=== PATIENT | male | born 1955 | race Caucasian/White ===

== ENCOUNTER 2018-03-14 11:10 | Inpatient (IN) | payer OTHER ==
[~2018-03-14] VITALS: Ht 182.9 cm; Wt 129.7 kg
[~2018-03-14 11:10] MED LIST: AMIODARONE HCL200 M1 PO; ASPIRIN EC81 M1 PO; ATORVASTATIN CA40 M1 PO; CLARITIN10 M1 PO; CLOPIDOGREL75 M1 PO; GLYBURIDE5 M1 PO; HYDROCODON-ACE1 EAC2 PO; LISINOPRIL2.5 M1 PO; METFORMIN HCL1000 M1 PO; METOPROLOL SUC100 M2 PO; PERCOCET 5-3251 EACH PO; PREDNISONE20 M1 PO; SENNA S TABLET1 EACH PO; TRADJENTA5 M1 PO
[2018-03-14 12:14] LABS: ABSOLUTE BASOPHIL COUNT 0 /CUMM (0.0-0.2); ABSOLUTE EOSINOPHIL COUNT 0.3 /CUMM (0.0-0.7); ABSOLUTE GRANULOCYTE CT 12.5 /CUMM (1.4-6.5); ABSOLUTE LYMPH COUNT 0.3 /CUMM (1.2-3.4); ABSOLUTE MONOCYTE COUNT 0.8 /CUMM (0.10-0.60); BASOPHIL % 0 % (0.0-2.0); EOSINOPHIL % 1.9 % (0-5); HEMATOCRIT 40.3 % (42-52); MEAN CORPUSCULAR HGB CONC 33.5 G/DL (33.0-37.0); MEAN CORPUSCULAR VOLUME 89.8 FL (80.0-94.0); MEAN PLATELET VOLUME 7.4 FL (7.4-10.4); PLATELET COUNT 315 /CUMM (130-400); RBC DISTRIBUTION WIDTH 13.8 % (11.5-14.5); RED BLOOD CELL CT 4.49 /CUMM (4.70-6.10)
[2018-03-14 12:28] LABS: GRANULOCYTE % 89.7 % (42.2-75.2)
--- NOTE | 2018-03-14 12:40 | ULTRASOUND REPORT ---
EXAMINATION: US CHEST CLINICAL INFORMATION: Hx MRSA w L axillary cellulitis, induration, fever COMPARISON: No direct priors. A CT chest from 08/03/2012 was reviewed. TECHNIQUE: Grayscale and color Doppler sonographic evaluation of the left lateral chest wall/axilla FINDINGS: Targeted evaluation of the left lateral chest wall/axilla in the region of clinical concern demonstrates heterogeneous subcutaneous fat compatible with edema/inflammation. No drainable fluid collection is demonstrated. IMPRESSION: No drainable fluid collection demonstrated.
--- NOTE | 2018-03-14 12:43 | ED SKIN/ALLERGY COMPLAINT ---
History of Present Illness General Chief Complaint: General Adult Stated Complaint: L SIDED FLANK SWELLING AND PAIN PER PT ?STAPH? Source: patient, family, old records Exam Limitations: no limitations Vital Signs & Intake/Output Vital Signs & Intake/Output Vital Signs Date Time Temp Pulse Resp B/P B/P Pulse O2 O2 Flow FiO2 Mean Ox Delivery Rate 03/14 1118 99.3 98 18 125/76 96 Room Air Allergies Coded Allergies: amiodarone (Severe, HIVES AND SOB 03/14/18) hydrocodone (Severe, HIVES AND SOB 03/14/18) Reconcile Medications Amlodipine Besylate 5 MG TABLET 1 TAB PO DAILY BP (Reported) Aspirin (Ecotrin*) 81 MG TABLET.DR 1 TAB PO DAILY HEART/BLOOD (Reported) Atorvastatin Calcium 80 MG TABLET 1 TAB PO DAILY CHOLESTEROL (Reported) [BENZOYL PEROXIDE] 1 ANNABEL TOP BID AFFECTED AREA(S) (Reported) Clindamycin Phosphate 1 % GEL..GRAM. 1 ANNABEL TOP BID AFFECTED AREA(S) (Reported ) apply to affected area(s) Dapagliflozin Propanediol (Farxiga) 10 MG TABLET 1 TAB PO DAILY DM (Reported) Glyburide 5 MG TABLET 1 TAB PO BID DIABETES (Reported) Linagliptin (Tradjenta) 5 MG TABLET 1 TAB PO QAM DIABETES (Reported) Metformin HCl 1,000 MG TABLET 1 TAB PO BID DIABETES (Reported) Metoprolol Tartrate 50 MG TABLET 1 TAB PO BID HEART/BP (Reported) Naproxen Sodium (Aleve) 220 MG TABLET 2 TAB PO Q12H PRN PAIN (Reported) Triage Note: REPORTS SWELLING ON THE LEFT ARMPIT AREA, HE NOTICED THIS EARLY LAST WEEK. HE IS CURRENTLY UNDER TREATMENT FOR STAPH INFECTION IN HIS CHEST HE REPORTS AND DOES NOT KNOW IF THIS IS RELATED. Triage Nurses Notes Reviewed? yes Onset: 2 weeks ago Duration: week(s):, constant, continues in ED, getting worse Timing: recent history Severity: moderate, severe Location: torso Possible Factors: no cause identified No Modifying Factors: none Associated Symptoms: change in skin texture, rash, swelling/mass/lumps HPI: 2 weeks prior to admission patient reports increasing redness and swelling the left posterior lateral chest / back. He recently completed trimethoprim sulfamethoxazole for inguinal cysts/abscesses. 1 day prior to admission reports having fever. He denies chest pain cough shortness of breath headache dysuria bleeding. Past History Travel History Traveled to [place] past 21 day No Medical History Any Pertinent Medical History? see below for history Neurological: NONE EENT: NONE Cardiovascular: QUADRUPLE BYPASS, HTN CHOL Respiratory: SLEEP APNEA Gastrointestinal: NONE Hepatic: NONE Renal: NONE Musculoskeletal: NONE Psychiatric: NONE Endocrine: diabetes Surgical History Surgical History: non-contributory Psychosocial History What is your primary language Eritrean Tobacco Use: Quit >30 days ago Family History Hx Contributory? No Review of Systems Review of Systems Constitutional: Reports: see HPI, fever. EENTM: Reports: no symptoms. Respiratory: Reports: no symptoms. Cardiovascular: Reports: no symptoms. GI: Reports: no symptoms. Genitourinary: Reports: no symptoms. Musculoskeletal: Reports: no symptoms. Skin: Reports: see HPI, rash. Neurological/Psychological: Reports: no symptoms. Hematologic/Endocrine: Reports: no symptoms. Immunologic/Allergic: Reports: no symptoms. All Other Systems: Reviewed and Negative Physical Exam Physical Exam General Appearance: well developed/nourished, alert, awake, anxious, mild distress, obese Head: atraumatic, normal appearance Eyes: Bilateral: normal appearance, PERRL, EOMI. Ears, Nose, Throat: normal pharynx, normal ENT inspection, hearing grossly normal Neck: normal inspection, supple, full range of motion, no midline tenderness Respiratory: normal breath sounds, chest non-tender, no respiratory distress, quiet respiration, lungs clear Cardiovascular: regular rate/rhythm, normal peripheral pulses, norml femoral pulses equa Peripheral Pulses: 4+ carotid (R), 4+ carotid (L) Gastrointestinal: normal bowel sounds, soft, non-tender, no organomegaly Back: normal inspection, normal range of motion, no vertebral tenderness Extremities: normal inspection, normal capillary refill, normal range of motion, no edema, no ligament instability Neurologic/Psych: no motor/sensory deficits, awake, alert, oriented x 3, normal gait, normal mood/affect Reflexes: 2+: bicep (R), bicep (L). Skin: intact, rash Skin Problem Location: torso Skin Problem Character: erythema, rash, swelling, tenderness, thickening, warm Lymphatic: no anterior cervical gracie Progress Differential Diagnosis: abscess/cellulitis, allergic reaction Plan of Care: Orders Procedure Date/time Status Consistent Carbohydrate 2 03/14 D Active OXYGEN SETUP (GEN) 03/14 1245 Active Saline Lock 03/14 1245 Active Admit to inpatient 03/14 1245 Active Vital Signs 03/14 1245 Active Activity/Ambulation 03/14 1245 Active Code Status 03/14 1245 Active BLOOD CULTURE 03/14 1135 Active COMPREHENSIVE METABOLIC PANEL 03/14 1135 Complete CBC WITHOUT DIFFERENTIAL 03/14 1135 Complete Current Medications Sig/Bailee Start time Last Medication Dose Stop Time Status Admin Vancomycin HCl 2,000 MG ONE ONE 03/14 1300 AC Sodium Chloride 500 ML 03/14 1459 (Normal Saline 0.9%) Vancomycin HCl 2,000 MG ONCE ONE 03/14 1245 CAN 03/14 1246 Laboratory Tests 03/14/18 1203: Anion Gap 16, Estimated GFR > 60, BUN/Creatinine Ratio 15.0, Glucose 131 H, Calcium 9.1, Total Bilirubin 1.4 H, AST 17, ALT 33, Alkaline Phosphatase 138 H , Total Protein 6.2 L, Albumin 3.4 L, Globulin 2.8, Albumin/Globulin Ratio 1.2 , CBC w Diff NO MAN DIFF REQ, RBC 4.49 L, MCV 89.8, MCH 30.0, MCHC 33.5, RDW 13.8, MPV 7.4, Gran % 89.7 H, Lymphocytes % 2.5 L, Monocytes % 5.9, Eosinophils % 1.9, Basophils % 0, Absolute Granulocytes 12.5 H, Absolute Lymphocytes 0.3 L, Absolute Monocytes 0.8 H, Absolute Eosinophils 0.3, Absolute Basophils 0 Microbiology 03/14 1219 BLOOD: Blood Culture - RECD 03/14 1203 BLOOD: Blood Culture - RECD Diagnostic Imaging: Viewed by Me: Ultrasound. Discussed w/RAD: Ultrasound. Radiology Impression: No drainable fluid collection. Departure Departure Disposition: STILL A PATIENT Condition: Fair Clinical Impression Primary Impression: Cellulitis Secondary Impressions: Leukocytosis Referrals: Ziyda COLLAZO,Al Dodd (PCP/Family) Departure Forms: Customer Survey General Discharge Information Admission Note Spoke With: Daquan COLLAZO,Arianna Documentation of Exam: Documentation of any treatments & extenuating circumstances including Concerns Regarding Discharge (functional status, medication knowledge or non-compliance, living conditions, etc.) that warrant an admission rather than observation: IV antibiotics follow cultures serial lab exam medication adjustment ID evaluation continuing care discharge planning
[2018-03-14] MEDS ORDERED: METOPROLOL TART50 M1 PO (13:04)
[2018-03-14] MEDS ORDERED: AMLODIPINE BESYL5 M1 PO (13:05)
[2018-03-14] MEDS ORDERED: ATORVASTATIN CA80 M1 PO (13:05)
[2018-03-14] MEDS ORDERED: CLINDAMYCIN PHO30 GM TOP (13:06)
[2018-03-14] MEDS ORDERED: FARXIGA10 M1 PO (13:06)
[2018-03-14] MEDS ORDERED: ALEVE220 M2 PO (13:08)
[2018-03-14] MEDS ORDERED: BENZOYL PEROXIDE TOP (13:08)
--- NOTE | 2018-03-14 14:03 | History & Physical ---
General Information and HPI MD Statement: I have seen and personally examined SHAYLA NEGRETE III and documented this H&P. The patient is a 62 year old M who presented with a patient stated chief complaint of pain. . Source of Information: patient, family, old records Exam Limitations: no limitations History of Present Illness: Mr Negrete a pleasant 62-year-old gentleman with past medical history of diabetes, coronary artery disease, hypertension, hyperlipidemia, quadruple bypass and sleep apnea (untreated) who presented to the emergency department on 03/14/2018 complaining of worsening pain and erythema in the left chest and left axillary area. Patient does have a history of cysts and originally started experiencing cysts in multiple parts of his body from mid november. He subsequently visited his primary care physician Dr. Lackey who prophylactically gave him Bactrim twice a day for 10 days. He was also given a referral to follow up with Dr Ramires because he never had a resolution. Dr Ramires started him on clindamycin (picked up 03/06) prophylactically. The patient also reports that he had to have some steroid injections to reduce inflammation from the cysts. Despite an aggressive workup and referrals the etiology of the cysts of still being idiopathic. Prior to coming in today the patient stated that he felt febrile and continued to experience worsening pain. Despite the fact that he was on clindamycin on he had limited range of motion of his left upper extremity. At the time of our clinical interaction the patient endorsed pain rated at a 6 out of 10 in severity. Described as constant and dull. States that he has 2 cysts one located in the anterior chest and the other under the left axillary. Patient did have a appointment to follow-up with Dr. Gonzalez this Thursday. Patient's primary care physician is Dr. Lackey. Patient reports good medication compliance. Allergies/Medications Allergies: Coded Allergies: amiodarone (Severe, HIVES AND SOB 03/14/18) hydrocodone (Severe, HIVES AND SOB 03/14/18) Home Med list Amlodipine Besylate 5 MG TABLET 1 TAB PO DAILY BP (Reported) Aspirin (Ecotrin*) 81 MG TABLET.DR 1 TAB PO DAILY HEART/BLOOD (Reported) Atorvastatin Calcium 80 MG TABLET 1 TAB PO DAILY CHOLESTEROL (Reported) [BENZOYL PEROXIDE] 1 ANNABEL TOP BID AFFECTED AREA(S) (Reported) Clindamycin Phosphate 1 % GEL..GRAM. 1 ANNABEL TOP BID AFFECTED AREA(S) (Reported ) apply to affected area(s) Dapagliflozin Propanediol (Farxiga) 10 MG TABLET 1 TAB PO DAILY DM (Reported) Glyburide 5 MG TABLET 1 TAB PO BID DIABETES (Reported) Linagliptin (Tradjenta) 5 MG TABLET 1 TAB PO QAM DIABETES (Reported) Metformin HCl 1,000 MG TABLET 1 TAB PO BID DIABETES (Reported) Metoprolol Tartrate 50 MG TABLET 1 TAB PO BID HEART/BP (Reported) Naproxen Sodium (Aleve) 220 MG TABLET 2 TAB PO Q12H PRN PAIN (Reported) Compliance With Home Meds: GOOD Past History Travel History Traveled to [place] past 21 day No Medical History Neurological: NONE EENT: NONE Cardiovascular: QUADRUPLE BYPASS, HTN CHOL Respiratory: SLEEP APNEA Gastrointestinal: NONE Hepatic: NONE Renal: NONE Musculoskeletal: NONE Psychiatric: NONE Endocrine: diabetes Surgical History Surgical History: non-contributory Past Family/Social History Family History Relations & Conditions if any FATHER (Liver failure due to alcohol abuse). MOTHER (Generalized Deconditioning). Psychosocial History Where do you live? Home Who Do You Live With? spouse Services at Home: None Primary Language: Sami Smoking Status: Never Smoked ETOH Use: occasional use Functional Ability ADLs Independent: dressing, eating, toileting, bathing. Ambulation: independent IADLs Independent: shopping, housework, finances, food prep, telephone, transportation , medication admin. Employment History Employment Retired Review of Systems Review of Systems Constitutional: Reports: fever. Denies: chills, diaphoresis, malaise, weakness. Musculoskeletal: Denies: back pain, gout, joint pain, joint swelling. Skin: Reports: cysts. Neurological/Psychological: Denies: ataxia, cognitive dysfunction, confusion, depressed, emotional problems. Exam & Diagnostic Data Last 24 Hrs of Vital Signs/I&O Vital Signs Date Time Temp Pulse Resp B/P B/P Pulse O2 O2 Flow FiO2 Mean Ox Delivery Rate 03/14 1426 99.7 88 18 117/59 97 Room Air 03/14 1118 99.3 98 18 125/76 96 Room Air Intake & Output 03/14 1600 03/14 0800 03/14 0000 Intake Total Output Total Balance Patient 131.542 kg Weight Weight Reported by Patient Measurement Method Physical Exam General Appearance Alert, Oriented X3, Cooperative Cardiovascular Normal S1, Normal S2, No Murmurs Lungs Clear to Auscultation Abdomen Normal Bowel Sounds, Soft, No Tenderness Neurological Normal Speech, Strength at 5/5 X4 Ext, Cranial Nerves 3-12 NL Extremities No Edema, Normal Pulses, No Tenderness/Swelling, Multiple Non Draining Healed Carbuncles located in the groin area. Left Axilla: erythematous , warmth and fluctuation noted. Chest wall, left sided carbuncle noted, Vascular Normal Pulses Body Front and Back (Adult) 1) Left Axialliary erythema, and warmth noted. ROM WNL Diagnostic Data Other Results SERVICE DATE: 03/14/18 EXAM TYPE: US - US-CHEST EXAMINATION: US CHEST CLINICAL INFORMATION: Hx MRSA w L axillary cellulitis, induration, fever COMPARISON: No direct priors. A CT chest from 08/03/2012 was reviewed. TECHNIQUE: Grayscale and color Doppler sonographic evaluation of the left lateral chest wall/axilla FINDINGS: Targeted evaluation of the left lateral chest wall/axilla in the region of clinical concern demonstrates heterogeneous subcutaneous fat compatible with edema/inflammation. No drainable fluid collection is demonstrated. IMPRESSION: No drainable fluid collection demonstrated. DICTATED BY: Olivia Gregg MD Assessment/Plan Assessment: Mr Negrete a pleasant 62-year-old gentleman with past medical history of diabetes, coronary artery disease, hypertension, hyperlipidemia, quadruple bypass and sleep apnea (untreated) who presented to the emergency department on 03/14/2018 complaining of worsening pain and erythema in the left chest and left axillary area. #Cellulitis previous culture report grown MSSA #Elevated liver enzymes #Hx of CAD #History of DM on multiple oral hypoglycemics #Sleep Apnea While in the emergency department the patient received IV vancomycin. Owing to previous history of MSSA begin the patient on IV oxacillin. If patient fails to improve overnight consider ID consultation. Apply warm compresses and keep arm elevated. Continue home medications including: Lopressor, Norvasc, Aspirin and Lipitor. Hold anti-oral hypoglycemics and begin the patient on Novollog SS. Maintain blood sugar below 180. CBC and BEP in AM. Monitor hepatic function in AM, if continues to be elevated, may consider Abdominal Ultrasound. Patient will likely benefit from sleep study as an outpatient. DVT PPX: Lovenox Patient is a full code As Ranked By This Provider Problem List: 1. Leukocytosis 2. Cellulitis Core Measures/Misc (07/05) Sepsis (View protocol) If YES complete Sepsis Event Note If YES complete Sepsis Event Note
--- NOTE | 2018-03-14 14:15 | Admission Certification ---
Admission Certification Certification Statement - As attending physician, I certify that at the time of - admission, based on clinical presentation, severity of - symptoms, need for further diagnostic testing and - therapeutic interventions, and risk of adverse outcomes - without in-hospital treatment, in my clinical assessment, - this patient requires an acute hospital stay for a minimum - of two nights or longer. I have also considered psychsocial - factors such as support system, advanced age, financial - issues, cognitive issues, and failed out-patient treatments, - past re-admission history, safety of patient, and lack of - compliance as applicable. Specific rationale supporting this admission is: Sialitis left chest wall
--- NOTE | 2018-03-14 14:15 | PN- Att Addend ---
Attending Addendum Attending Brief Note Patient seen and examined. Plan of care discussed with the medical team and the patient. Available lab work and radiology test reports were reviewed. This is 62-year-old male with history of for diabetes, CAD, hypertension, hypercholesteremia, sleep apnea and quadruple bypass who has been treated recently for carbuncles at multiple locations. He has seen the dermatology office recently she was given intralesional corticosteroids in addition to topical clindamycin. Patient also admits to receiving oral antibiotic. For the past 2 days patient has noted increasing pain in the left exhilarated area and has noticed swelling or redness. He admits to having mild nausea but no vomiting and denies any fever or chills. Denies any difficulty breathing or any abdominal pain. Allergies Coded Allergies: amiodarone (Severe, HIVES AND SOB 03/14/18) hydrocodone (Severe, HIVES AND SOB 03/14/18) Reconcile Medications Amlodipine Besylate 5 MG TABLET 1 TAB PO DAILY BP (Reported) Aspirin (Ecotrin*) 81 MG TABLET.DR 1 TAB PO DAILY HEART/BLOOD (Reported) Atorvastatin Calcium 80 MG TABLET 1 TAB PO DAILY CHOLESTEROL (Reported) [BENZOYL PEROXIDE] 1 ANNABEL TOP BID AFFECTED AREA(S) (Reported) Clindamycin Phosphate 1 % GEL..GRAM. 1 ANNABEL TOP BID AFFECTED AREA(S) (Reported ) apply to affected area(s) Dapagliflozin Propanediol (Farxiga) 10 MG TABLET 1 TAB PO DAILY DM (Reported) Glyburide 5 MG TABLET 1 TAB PO BID DIABETES (Reported) Linagliptin (Tradjenta) 5 MG TABLET 1 TAB PO QAM DIABETES (Reported) Metformin HCl 1,000 MG TABLET 1 TAB PO BID DIABETES (Reported) Metoprolol Tartrate 50 MG TABLET 1 TAB PO BID HEART/BP (Reported) Naproxen Sodium (Aleve) 220 MG TABLET 2 TAB PO Q12H PRN PAIN (Reported) Medical History Any Pertinent Medical History? see below for history Neurological: NONE EENT: NONE Cardiovascular: QUADRUPLE BYPASS, HTN CHOL Respiratory: SLEEP APNEA Gastrointestinal: NONE Hepatic: NONE Renal: NONE Musculoskeletal: NONE Psychiatric: NONE Endocrine: diabetes Surgical History Surgical History: non-contributory Psychosocial History What is your primary language Pry[place]inig Tobacco Use: Quit >30 days ago Family History Hx Contributory? No Vital Signs Date Time Temp Pulse Resp B/P B/P Pulse O2 O2 Flow FiO2 Mean Ox Delivery Rate 03/14 1118 99.3 98 18 125/76 96 Room Air Intake & Output 03/14 1600 03/14 0800 03/14 0000 Intake Total Output Total Balance Patient 290 lb Weight Weight Reported by Patient Measurement Method Exam: General: Patient awake alert oriented without any distress CVS: S1 plus S2 without any murmur or gallops Chest: Few scattered crepitation without any wheeze. There is no respiratory distress. Abdomen: Soft non-tender, bowel sound present, no guarding or rebound [employer]: Awake alert oriented without any focal neuro deficit and follows commands appropriately Extremities: No edema; no clubbing or cyanosis noted Skin: Multiple healed and healing carbuncles over groin abdomen and chest area axilla: Left axilla area shows chest wall hyperemia and tenderness and mild fluctuation; no lymph nodes are detected Laboratory Tests 03/14/18 1203: Anion Gap 16, Estimated GFR > 60, BUN/Creatinine Ratio 15.0, Glucose 131 H, Calcium 9.1, Total Bilirubin 1.4 H, AST 17, ALT 33, Alkaline Phosphatase 138 H , Total Protein 6.2 L, Albumin 3.4 L, Globulin 2.8, Albumin/Globulin Ratio 1.2 , CBC w Diff NO MAN DIFF REQ, RBC 4.49 L, MCV 89.8, MCH 30.0, MCHC 33.5, RDW 13.8, MPV 7.4, Gran % 89.7 H, Lymphocytes % 2.5 L, Monocytes % 5.9, Eosinophils % 1.9, Basophils % 0, Absolute Granulocytes 12.5 H, Absolute Lymphocytes 0.3 L, Absolute Monocytes 0.8 H, Absolute Eosinophils 0.3, Absolute Basophils 0 Microbiology 03/14 1219 BLOOD: Blood Culture - RECD 03/14 1203 BLOOD: Blood Culture - RECD US: No fluid collection Assessment and problem list * Left chest wall cellulitis; note that a culture report from November this year from the carbuncle has grown MSSA * History of CAD status post CABG * History diabetes * History of sleep apnea * Obesity Plan: * Begin iv oxacillin * cbc in am * continue home meds * may need reimaging to rule out fluid collection in 2-3 days. * Because of recurrent carbuncles and skin infection patient may likely in future need suppressive antibiotic treatment and possibly chlorhexidine baths
[2018-03-14 15:34] VITALS: BP 132/60
[2018-03-14 22:32] VITALS: BP 116/60
--- NOTE | 2018-03-15 09:01 | PN- Housestaff ---
Subjective Follow-up For: #Cellulitis previous culture report grown MSSA #Elevated liver enzymes #Hx of CAD #History of DM on multiple oral hypoglycemics #Sleep Apnea Subjective: Patient offers no complaints. at bedside reports that patient's skin erythema seems to be spreading. Review of Systems Constitutional: Reports: see HPI. Objective Last 24 Hrs of Vital Signs/I&O Vital Signs Date Time Temp Pulse Resp B/P B/P Pulse O2 O2 Flow FiO2 Mean Ox Delivery Rate 03/15 921 101 116/60 03/15 0921 101 116/60 03/14 2232 99.1 101 18 116/60 94 03/14 2142 116/60 03/14 1534 97.9 107 20 132/60 99 Room Air 03/14 1426 99.7 88 18 117/59 97 Room Air Intake & Output 03/15 1600 03/15 0800 03/15 0000 Intake Total 540 390 Output Total Balance 540 390 Intake, IV 300 150 Intake, Oral 240 240 Patient 286 lb Weight Physical Exam General Appearance: Alert, Oriented X3, Cooperative, No Acute Distress, Obese Skin: R anxillary and posterior chest with skin erythema, warmth and induration. Tender on palpation Cardiovascular: Regular Rate, Normal S1, Normal S2 Lungs: Clear to Auscultation, Normal Air Movement Abdomen: Normal Bowel Sounds, Soft, No Tenderness Current Medications: Current Medications Sig/Bailee Start time Last Medication Dose Route Stop Time Status Admin Acetaminophen 650 MG Q6P PRN 03/15 0230 AC 03/15 PO 0225 Acetaminophen 1,000 MG Q6P PRN 03/15 0230 AC IV Amlodipine Besylate 5 MG DAILY 03/15 09 AC 03/15 PO 0921 Aspirin Buffered 81 MG DAILY 03/15 09 AC 03/15 PO 0921 Atorvastatin Calcium 80 MG DAILY 03/15 09 AC 03/15 PO 0935 Enoxaparin Sodium 40 MG DAILY@1500 03/14 1515 AC SC Ibuprofen 400 MG ONCE ONE 03/14 1600 DC 03/14 PO 03/14 1601 1615 Insulin Aspart 0 TIDAC 03/15 0800 AC 03/15 SC 1201 Insulin Aspart 0 AT BEDTIME 03/14 2100 AC 03/14 SC 2141 Metoprolol Tartrate 50 MG BID 03/14 2100 AC 03/15 PO 0921 Oxacillin Sodium 2,000 MG Q4 03/14 1800 AC 03/15 Sodium Chloride 100 ML IV 0921 Oxycodone/ 2 TAB Q6P PRN 03/15 0230 AC Acetaminophen PO Vancomycin HCl 2,000 MG ONE ONE 03/14 1300 DC 03/14 Sodium Chloride 500 ML IV 03/14 1459 1358 Vancomycin HCl 2,000 MG ONCE ONE 03/14 1245 CAN IV 03/14 1246 Last 24 Hrs of Lab/Nathaniel Results Last 24 Hrs of Labs/Mics: Laboratory Tests 03/15/18 0630: Anion Gap 16, Estimated GFR > 60, BUN/Creatinine Ratio 13.6, Total Bilirubin 1.2 , Direct Bilirubin 0.9 H, AST 14 L, ALT 29, Alkaline Phosphatase 102, Total Protein 5.1 L, Albumin 2.7 L, CBC w Diff MAN DIFF ORDERED, RBC 3.94 L, MCV 89.8, MCH 30.3, MCHC 33.8, RDW 14.1, MPV 7.9, Gran % 83.6 H, Lymphocytes % 4.6 L, Monocytes % 10.3 H, Eosinophils % 1.1, Basophils % 0.4, Absolute Granulocytes 11.2 H, Absolute Lymphocytes 0.6 L, Absolute Monocytes 1.4 H, Absolute Eosinophils 0.1, Absolute Basophils 0.1, Platelet Estimate ADEQUATE, Anisocytosis 1+ Microbiology 03/15 1033 UPPER RESP: Surveillance Culture - RECD 03/14 1219 BLOOD: Blood Culture - RES Assessment/Plan Assessment: Mr Au a pleasant 62-year-old gentleman with past medical history of diabetes, coronary artery disease, hypertension, hyperlipidemia, quadruple bypass and sleep apnea (untreated) who presented to the emergency department on 03/14/2018 complaining of worsening pain and erythema in the left chest and left axillary area. #Cellulitis previous culture report grown MSSA #Elevated liver enzymes #Hx of CAD #History of DM on multiple oral hypoglycemics #Sleep Apnea Plan: * Continue IV oxacillin * ID consult for worsening cellulitis though white ct downtrending * We will obtain MRSA nares surveillance * Apply warm compresses and keep arm elevated * Continue home medications including: Lopressor, Norvasc, Aspirin and Lipitor * Accu-Cheks and Novollog SS. * Patient will likely benefit from sleep study as an outpatient Diet: Diabetic DVT PPX: Lovenox Patient is a full code Problem List: 1. Cellulitis Pain Ratin Pain Location: R chest Pain Goal: Pain 4 or less Pain Plan: percocet Tomorrow's Labs & Rationales: CBC
[2018-03-15 09:24] LABS: ABSOLUTE BASOPHIL COUNT 0.1 /CUMM (0.0-0.2); ABSOLUTE EOSINOPHIL COUNT 0.1 /CUMM (0.0-0.7); ABSOLUTE GRANULOCYTE CT 11.2 /CUMM (1.4-6.5); ABSOLUTE LYMPH COUNT 0.6 /CUMM (1.2-3.4); ABSOLUTE MONOCYTE COUNT 1.4 /CUMM (0.10-0.60); BASOPHIL % 0.4 % (0.0-2.0); EOSINOPHIL % 1.1 % (0-5); GRANULOCYTE % 83.6 % (42.2-75.2); HEMATOCRIT 35.4 % (42-52); MEAN CORPUSCULAR HGB 30.3 PG (27.0-31.0); MEAN CORPUSCULAR HGB CONC 33.8 G/DL (33.0-37.0); MEAN CORPUSCULAR VOLUME 89.8 FL (80.0-94.0); MEAN PLATELET VOLUME 7.9 FL (7.4-10.4); PLATELET COUNT 272 /CUMM (130-400); RBC DISTRIBUTION WIDTH 14.1 % (11.5-14.5); RED BLOOD CELL CT 3.94 /CUMM (4.70-6.10); WHITE BLOOD CELL COUNT 13.4 /CUMM (4.8-10.8)
--- NOTE | 2018-03-15 11:32 | PN- Att Addend ---
Attending Addendum Attending Brief Note Patient seen and examined. Plan of care discussed with the medical team and the patient. Available lab work and radiology test reports were reviewed. Patient has been afebrile but did notice chills around midnight last night. He he is slightly tachycardic this morning but otherwise feels little better. Exam: General: Patient awake alert oriented without any distress CVS: S1 plus S2 without any murmur or gallops Chest: Few scattered crepitation without any wheeze. There is no respiratory distress. Abdomen: Soft non-tender, bowel sound present, no guarding or rebound FISHER HAND LINE: Awake alert oriented without any focal neuro deficit and follows commands appropriately Extremities: No edema; no clubbing or cyanosis noted Skin: Multiple healed and healing carbuncles over groin abdomen and chest area axilla: Left axilla area shows chest wall hyperemia and tenderness and mild fluctuation; no lymph nodes are detected Assessment and problem list * Left chest wall cellulitis; note that a culture report from November this year from the carbuncle has grown MSSA * History of CAD status post CABG * History diabetes * History of sleep apnea * Obesity Plan: * Continue iv oxacillin * cbc in am * Please repeat ultrasound left chest wall in a.m. to rule out fluid collection in 2-3 days. * General surgery consultation for possible drainage and culture of fluid * Because of recurrent carbuncles and skin infection patient may likely in future need suppressive antibiotic treatment and possibly chlorhexidine baths Current Medications Sig/Bailee Start time Last Medication Dose Route Stop Time Status Admin Acetaminophen 650 MG Q6P PRN 03/15 0230 AC 03/15 PO 0225 Acetaminophen 1,000 MG Q6P PRN 03/15 0230 AC IV Amlodipine Besylate 5 MG DAILY 03/15 09 AC 03/15 PO 0921 Aspirin Buffered 81 MG DAILY 03/15 0900 AC 03/15 PO 0921 Atorvastatin Calcium 80 MG DAILY 03/15 09 AC 03/15 PO 0935 Enoxaparin Sodium 40 MG DAILY@1500 03/14 1515 AC SC Ibuprofen 400 MG ONCE ONE 03/14 1600 DC 03/14 PO 03/14 1601 1615 Insulin Aspart 0 TIDAC 03/15 0800 AC SC Insulin Aspart 0 AT BEDTIME 03/14 2100 AC 03/14 SC 2141 Metoprolol Tartrate 50 MG BID 03/14 2100 AC 03/15 PO 0921 Oxacillin Sodium 2,000 MG Q4 03/14 1800 AC 03/15 Sodium Chloride 100 ML IV 0921 Oxycodone/ 2 TAB Q6P PRN 03/15 0230 AC Acetaminophen PO Vancomycin HCl 2,000 MG ONE ONE 03/14 1300 DC 03/14 Sodium Chloride 500 ML IV 03/14 1459 1358 Vancomycin HCl 2,000 MG ONCE ONE 03/14 1245 CAN IV 03/14 1246 Laboratory Tests 03/15/18 0630: Anion Gap 16, Estimated GFR > 60, BUN/Creatinine Ratio 13.6, Total Bilirubin 1.2 , Direct Bilirubin 0.9 H, AST 14 L, ALT 29, Alkaline Phosphatase 102, Total Protein 5.1 L, Albumin 2.7 L, CBC w Diff MAN DIFF ORDERED, RBC 3.94 L, MCV 89.8, MCH 30.3, MCHC 33.8, RDW 14.1, MPV 7.9, Gran % 83.6 H, Lymphocytes % 4.6 L, Monocytes % 10.3 H, Eosinophils % 1.1, Basophils % 0.4, Absolute Granulocytes 11.2 H, Absolute Lymphocytes 0.6 L, Absolute Monocytes 1.4 H, Absolute Eosinophils 0.1, Absolute Basophils 0.1, Platelet Estimate ADEQUATE, Anisocytosis 1+ 03/14/18 1203: Anion Gap 16, Estimated GFR > 60, BUN/Creatinine Ratio 15.0, Glucose 131 H, Calcium 9.1, Total Bilirubin 1.4 H, AST 17, ALT 33, Alkaline Phosphatase 138 H , Total Protein 6.2 L, Albumin 3.4 L, Globulin 2.8, Albumin/Globulin Ratio 1.2 , CBC w Diff NO MAN DIFF REQ, RBC 4.49 L, MCV 89.8, MCH 30.0, MCHC 33.5, RDW 13.8, MPV 7.4, Gran % 89.7 H, Lymphocytes % 2.5 L, Monocytes % 5.9, Eosinophils % 1.9, Basophils % 0, Absolute Granulocytes 12.5 H, Absolute Lymphocytes 0.3 L, Absolute Monocytes 0.8 H, Absolute Eosinophils 0.3, Absolute Basophils 0 Microbiology 03/15 1033 UPPER RESP: Surveillance Culture - COLB 03/14 1219 BLOOD: Blood Culture - RECD 03/14 1203 BLOOD: Blood Culture - RECD Vital Signs Date Time Temp Pulse Resp B/P B/P Pulse O2 O2 Flow FiO2 Mean Ox Delivery Rate 03/15 0921 101 116/60 03/15 0921 101 116/60 03/14 2232 99.1 101 18 116/60 94 03/14 2142 11603/14 1534 97.9 107 20 132/60 99 Room Air 03/14 1426 99.7 88 18 117/59 97 Room Air Intake & Output 03/15 1600 03/15 0800 03/15 0000 Intake Total 540 390 Output Total Balance 540 390 Intake, IV 300 150 Intake, Oral 240 240 Patient 286 lb Weight
[2018-03-15 14:08] VITALS: BP 118/90
--- NOTE | 2018-03-15 16:34 | Cons- Infect Disease ---
General Information and HPI Consulting Request Date of Consult: 03/15/18 Requested By: Daquan COLLAZO,Arianna Reason for Consult: abx advice Source of Information: patient, primary team Exam Limitations: clinical condition History of Present Illness: 62-year-old M with past medical history of DM2, coronary artery disease, hypertension, hyperlipidemia, CAD s/p quadruple bypass and sleep apnea admitted on 03/14/2018 with cellulitis of the trunk; treated w/ iv Oxacillin taking in account past infection w/ MSSA. Team concerned that cellulitic changes are not receding. Local chest US was performed. Patient does have a history of cysts and originally started experiencing cysts in multiple parts of his body starting mid November, received prophylactic abx treatment w/ Bactrim and most recently w/clindamycin (started 03/06). Prior to admission he felt feverish and continued to experience worsening pain, rated at a 6 out of 10 in severity; better after taking pain medication. Denies any local insect bites. Allergies/Medications Allergies: Coded Allergies: amiodarone (Severe, HIVES AND SOB 03/14/18) hydrocodone (Severe, HIVES AND SOB 03/14/18) Home Med List: Amlodipine Besylate 5 MG TABLET 1 TAB PO DAILY BP (Reported) Aspirin (Ecotrin*) 81 MG TABLET.DR 1 TAB PO DAILY HEART/BLOOD (Reported) Atorvastatin Calcium 80 MG TABLET 1 TAB PO DAILY CHOLESTEROL (Reported) [BENZOYL PEROXIDE] 1 ANNABEL TOP BID AFFECTED AREA(S) (Reported) Clindamycin Phosphate 1 % GEL..GRAM. 1 ANNABEL TOP BID AFFECTED AREA(S) (Reported ) apply to affected area(s) Dapagliflozin Propanediol (Farxiga) 10 MG TABLET 1 TAB PO DAILY DM (Reported) Glyburide 5 MG TABLET 1 TAB PO BID DIABETES (Reported) Linagliptin (Tradjenta) 5 MG TABLET 1 TAB PO QAM DIABETES (Reported) Metformin HCl 1,000 MG TABLET 1 TAB PO BID DIABETES (Reported) Metoprolol Tartrate 50 MG TABLET 1 TAB PO BID HEART/BP (Reported) Naproxen Sodium (Aleve) 220 MG TABLET 2 TAB PO Q12H PRN PAIN (Reported) Current Medications: Current Medications Sig/Bailee Start time Last Medication Dose Route Stop Time Status Admin Acetaminophen 650 MG Q6P PRN 03/15 0230 AC 03/15 PO 0225 Acetaminophen 1,000 MG Q6P PRN 03/15 0230 AC IV Amlodipine Besylate 5 MG DAILY 03/15 09 AC 03/15 PO 0921 Aspirin Buffered 81 MG DAILY 03/15 09 AC 03/15 PO 0921 Atorvastatin Calcium 80 MG DAILY 03/15 09 AC 03/15 PO 0935 Enoxaparin Sodium 40 MG DAILY@1500 03/14 1515 AC SC Insulin Aspart 0 TIDAC 03/15 0800 AC 03/15 SC 1201 Insulin Aspart 0 AT BEDTIME 03/14 2100 AC 03/14 SC 2141 Metoprolol Tartrate 50 MG BID 03/14 2100 AC 03/15 PO 0921 Oxacillin Sodium 2,000 MG Q4 03/14 1800 AC 03/15 Sodium Chloride 100 ML IV 1404 Oxycodone/ 2 TAB Q6P PRN 03/15 0230 AC Acetaminophen PO Past History Travel History Traveled to [place] past 21 day No Medical History Neurological: NONE EENT: NONE Cardiovascular: hypertension, hyperlipidemia, QUADRUPLE BYPASS Respiratory: obstructive sleep apnea Gastrointestinal: NONE Hepatic: NONE Renal: NONE Musculoskeletal: NONE Psychiatric: NONE Endocrine: diabetes Blood Disorders: NONE Cancer(s): NONE 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 MOTHER (Generalized Deconditioning). Psychosocial History Where Do You Live? Home Who Do You Live With? spouse Services at Home: None Primary Language: Luxembourger Smoking Status: Former Smoker ETOH Use: occasional use Functional Ability ADLs Independent: dressing, eating, toileting, bathing. Ambulation: independent IADLs Independent: shopping, housework, finances, food prep, telephone, transportation , medication admin. Employment History Employment: Retired Review of Systems Comments 12 points reviewed as noted, otherwise negative. Exam & Diagnostic Data Last 24 Hrs of Vital Signs/I&O Vital Signs Date Time Temp Pulse Resp B/P B/P Pulse O2 O2 Flow FiO2 Mean Ox Delivery Rate 03/15 1408 97.7 97 20 118/90 97 Room Air 03/15 921 101 116/60 03/15 921 101 116/60 03/14 2232 99.1 101 18 116/60 94 03/14 2142 116/60 Intake & Output 03/15 1600 03/15 0800 03/15 0000 Intake Total 680 540 390 Output Total Balance 680 540 390 Intake, IV 200 300 150 Intake, Oral 480 240 240 Number 0 Bowel Movements Patient 286 lb Weight Physical Exam Other Physical Findings: General: Patient awake alert oriented without any distress HEENT AT/sclera anicteric Neck No JVD CVS: S1 plus S2 without any murmur or gallops auscultated Chest: BS present. There is no respiratory distress. 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 ROLL OPERATOR: Awake alert oriented without any focal neuro deficit and follows commands appropriately Extremities: No edema; no clubbing or cyanosis noted Skin: Healed hidradenitos suppurative lesions suprapubic and inguinal areas; one healed leasion w/ hyperpigmentation R axillary area; marked erythema, tenderness and swelling R lateral chest area with mild fluctuation; no drainage Last 24 Hours of Lab Results: Laboratory Tests 03/15 0630 Chemistry Sodium (137 - 145 mmol/L) 141 Potassium (3.5 - 5.1 mmol/L) 3.6 Chloride (98 - 107 mmol/L) 105 Carbon Dioxide (22 - 30 mmol/L) 20 L Anion Gap (5 - 16) 16 BUN (9 - 20 mg/dL) 15 Creatinine (0.7 - 1.2 mg/dL) 1.1 Estimated GFR (>60 ml/min) > 60 BUN/Creatinine Ratio (7 - 25 %) 13.6 Total Bilirubin (0.2 - 1.3 mg/dL) 1.2 Direct Bilirubin (< 0.4 mg/dL) 0.9 H AST (17 - 59 U/L) 14 L ALT (21 - 72 U/L) 29 Alkaline Phosphatase (< 127 U/L) 102 Total Protein (6.3 - 8.2 g/dL) 5.1 L Albumin (3.5 - 5.0 g/dL) 2.7 L Hematology CBC w Diff MAN DIFF ORDERED WBC (4.8 - 10.8 /CUMM) 13.4 H RBC (4.70 - 6.10 /CUMM) 3.94 L Hgb (14.0 - 18.0 G/DL) 11.9 L Hct (42 - 52 %) 35.4 L MCV (80.0 - 94.0 FL) 89.8 MCH (27.0 - 31.0 PG) 30.3 MCHC (33.0 - 37.0 G/DL) 33.8 RDW (11.5 - 14.5 %) 14.1 Plt Count (130 - 400 /CUMM) 272 MPV (7.4 - 10.4 FL) 7.9 Gran % (42.2 - 75.2 %) 83.6 H Lymphocytes % (20.5 - 51.1 %) 4.6 L Monocytes % (1.7 - 9.3 %) 10.3 H Eosinophils % (0 - 5 %) 1.1 Basophils % (0.0 - 2.0 %) 0.4 Absolute Granulocytes (1.4 - 6.5 /CUMM) 11.2 H Absolute Lymphocytes (1.2 - 3.4 /CUMM) 0.6 L Absolute Monocytes (0.10 - 0.60 /CUMM) 1.4 H Absolute Eosinophils (0.0 - 0.7 /CUMM) 0.1 Absolute Basophils (0.0 - 0.2 /CUMM) 0.1 Platelet Estimate (ADEQUATE) ADEQUATE Anisocytosis 1+ Last 24 Hours of Nathaniel Results: tient : SHAYLA NEGRETE III Acct: [id number] DR: Daquan COLLAZO,Arianna Birthdate: [birth year] Age/Sex: 62/M Unit: [id number] Loc: [id number] [phone] Status : ADM IN SPEC #: [id number] MARII: 03/14/18 STATUS: RES RECD: 03/14/[address]: Eliot Guerrero MD SOURCE: BLOOD ENTR: 03/14/[address] [facility] [address]: Ziyad COLLAZO,Al Dodd SPDESC: 2ND/VENOUS ORDERED: BLOOD CULTURE Procedure Result > BLOOD CULTURE REPORT Preliminary 03/15/18 No growth after 1 day incubation. Specimen is examined continuously for 5 days before final report unless culture becomes positive. Diagnostic Data Recent Imaging Findings: SERVICE DATE: 03/14/18 EXAM TYPE: US - US-CHEST EXAMINATION: US CHEST CLINICAL INFORMATION: Hx MRSA w L axillary cellulitis, induration, fever COMPARISON: No direct priors. A CT chest from 08/03/2012 was reviewed. TECHNIQUE: Grayscale and color Doppler sonographic evaluation of the left lateral chest wall/axilla FINDINGS: Targeted evaluation of the left lateral chest wall/axilla in the region of clinical concern demonstrates heterogeneous subcutaneous fat compatible with edema/inflammation. No drainable fluid collection is demonstrated. IMPRESSION: No drainable fluid collection demonstrated. DICTATED BY: Olivia Gregg MD DATE/TIME DICTATED:03/14/181231 METAL CEILING BUILDER:LONA DATE/TIME TRANSCRIBED:03/14/181231 Assessment/Plan Assessment/Plan Impression: 62-year-old M with past medical history of DM2, coronary artery disease, hypertension, hyperlipidemia, CAD s/p quadruple bypass and sleep apnea admitted on 03/14/2018 with cellulitis of the trunk/early abscess/unlikely clinical presentation for tick bite; h/o MSSA skin and soft tissue infection 11/2017. recent exposure to multiple antribiotics in the recent past. Leukocytosis Question recent tick bite Suggestion: 1. D/c oxacillin. 2. Start: (i) iv vancomycin dosed per pharmacy goal trough 10-15. (ii) Unasyn 3 gm iv q 6 h 3. Lyme ROBERT w/ reflex WB. 4. Trend CBC/BMP. Consult Acknowledgment - Thank you for your consult request.
--- NOTE | 2018-03-15 17:05 | Cons- General Surgery ---
Millicent Carl 03/15/18 1703: General Information and HPI Consulting Request Date of Consult: 03/15/18 Requested By: Daquan COLLAZO,Arianna Reason for Consult: CELLULITIS AND POSSIBLE ABSCESS FORMATION UNDER THE LEFT ARM Source of Information: patient Exam Limitations: no limitations History of Present Illness: 62 Y/O MALE COMPLAINS OF RECURRENT ABSCESS THAT DEVELOP SPONTANEOUSLY. HE IS A DIABETIC WITH HTN AND CAD. [facility] IN [facility] HE STARTED TO DEVELOP MULTIPLE CARNUNCLES AND SMALL ABSCESSES IN THE GROIN AND CHEST WALL. THESE CULTURED OUT MSSA. HE WAS SEEN AND TREATED BY DERMATOLOGY FOR DECOLONIZATION WITH SURGICAL WASHES AND ABX. HE RECENTLY DEVELOPED A TENDER AREA UNDER THE LEFT ARM AND POSTERIOR SCAPULAR AREA. HE DENIES FEVERS OR CHILLS. Allergies/Medications Allergies: Coded Allergies: amiodarone (Severe, HIVES AND SOB 03/14/18) hydrocodone (Severe, HIVES AND SOB 03/14/18) Home Med List: Amlodipine Besylate 5 MG TABLET 1 TAB PO DAILY BP (Reported) Aspirin (Ecotrin*) 81 MG TABLET.DR 1 TAB PO DAILY HEART/BLOOD (Reported) Atorvastatin Calcium 80 MG TABLET 1 TAB PO DAILY CHOLESTEROL (Reported) [BENZOYL PEROXIDE] 1 ANNABEL TOP BID AFFECTED AREA(S) (Reported) Clindamycin Phosphate 1 % GEL..GRAM. 1 ANNABEL TOP BID AFFECTED AREA(S) (Reported ) apply to affected area(s) Dapagliflozin Propanediol (Farxiga) 10 MG TABLET 1 TAB PO DAILY DM (Reported) Glyburide 5 MG TABLET 1 TAB PO BID DIABETES (Reported) Linagliptin (Tradjenta) 5 MG TABLET 1 TAB PO QAM DIABETES (Reported) Metformin HCl 1,000 MG TABLET 1 TAB PO BID DIABETES (Reported) Metoprolol Tartrate 50 MG TABLET 1 TAB PO BID HEART/BP (Reported) Naproxen Sodium (Aleve) 220 MG TABLET 2 TAB PO Q12H PRN PAIN (Reported) Past History Medical History Neurological: NONE EENT: NONE Cardiovascular: hypertension, hyperlipidemia, QUADRUPLE BYPASS Respiratory: obstructive sleep apnea Gastrointestinal: NONE Hepatic: NONE Renal: NONE Musculoskeletal: NONE Psychiatric: NONE Endocrine: diabetes Blood Disorders: NONE Cancer(s): NONE 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 MOTHER (Generalized Deconditioning). Psychosocial History Where Do You Live? Home Who Do You Live With? spouse Services at Home: None Primary Language: Norwegian Smoking Status: Former Smoker ETOH Use: occasional use Functional Ability ADLs Independent: dressing, eating, toileting, bathing. Ambulation: independent IADLs Independent: shopping, housework, finances, food prep, telephone, transportation , medication admin. Employment History Employment: Retired Review of Systems Review of Systems Constitutional: Denies: chills, fever, malaise, weakness. EENTM: Denies: no symptoms. Cardiovascular: Denies: chest pain, orthopena, palpitations, peripheral edema. Respiratory: Denies: cough, short of breath. GI: Denies: abdominal pain, constipation, diarrhea, nausea, vomiting. Genitourinary: Denies: no symptoms. Musculoskeletal: Reports: back pain. Skin: Reports: cysts, lumps. Neurological/Psychological: Denies: no symptoms. Hematologic/Endocrine: Denies: no symptoms. Immunologic/Allergic: Denies: no symptoms. Exam & Diagnostic Data Vital Signs and I&O Vital Signs Date Time Temp Pulse Resp B/P B/P Pulse O2 O2 Flow FiO2 Mean Ox Delivery Rate 03/15 1408 97.7 97 20 118/90 97 Room Air 03/15 0921 101 116/60 03/15 0921 101 116/60 03/14 2232 99.1 101 18 116/60 94 03/14 2142 /60 Intake & Output 03/15 1600 03/15 0800 03/15 0000 03/14 1600 03/14 0800 03/14 0000 Intake Total 680 540 390 Output Total Balance 680 540 390 Intake, IV 200 300 150 Intake, Oral 480 240 240 Number 0 Bowel Movements Patient 286 lb 290 lb Weight Weight Reported by Patient Measurement Method Physical Exam: PATIENT ALERT AND ORIENTED, SITTING IN CHAIR, COMFORTABLE vss AFEBRILE CHEST - SMALL HEALED CARBUNCLE -AT INFERIOR ASPECT OF CABG SCAR CTA SYMMETRIC HEART-RRR WITHOUT MRG LEFT LATERL CHEST AND SCAPULAR AREA -ENCIRCLED AREA OF CELLULITIS WITH CENTRAL INDURATION AND FULLNESS, MARKED ERYTHEMA, NO ABSCESS APPRECIATED YET, AXILLARY SORENESS NO PALPABLE NODES, NO ASCENDING CELLULITIS ABDOMEN -ROUNDED WITH HANGING PANNUS, ONE OPEN ULCER WITHOUT DRAINAGE OR CELLULITIS AT RIGHT LOWER QUADRANT AREA GROIN -MULTIPLE ABSCESS IN VARIOUS STAGES OF HEALING WITHOUT ACTIVE CELLULITIS ABDOMEN - NONTENDER, POS BS BILATERAL LOWER EXTREMITIES -STASIS DERMATITIS, EARLY CHRONIC CHANGES Admission Lab Results I reviewed the following labs: Laboratory Tests 03/15 0630 Chemistry Sodium (137 - 145 mmol/L) 141 Potassium (3.5 - 5.1 mmol/L) 3.6 Chloride (98 - 107 mmol/L) 105 Carbon Dioxide (22 - 30 mmol/L) 20 L Anion Gap (5 - 16) 16 BUN (9 - 20 mg/dL) 15 Creatinine (0.7 - 1.2 mg/dL) 1.1 Estimated GFR (>60 ml/min) > 60 BUN/Creatinine Ratio (7 - 25 %) 13.6 Total Bilirubin (0.2 - 1.3 mg/dL) 1.2 Direct Bilirubin (< 0.4 mg/dL) 0.9 H AST (17 - 59 U/L) 14 L ALT (21 - 72 U/L) 29 Alkaline Phosphatase (< 127 U/L) 102 Total Protein (6.3 - 8.2 g/dL) 5.1 L Albumin (3.5 - 5.0 g/dL) 2.7 L Hematology CBC w Diff MAN DIFF ORDERED WBC (4.8 - 10.8 /CUMM) 13.4 H RBC (4.70 - 6.10 /CUMM) 3.94 L Hgb (14.0 - 18.0 G/DL) 11.9 L Hct (42 - 52 %) 35.4 L MCV (80.0 - 94.0 FL) 89.8 MCH (27.0 - 31.0 PG) 30.3 MCHC (33.0 - 37.0 G/DL) 33.8 RDW (11.5 - 14.5 %) 14.1 Plt Count (130 - 400 /CUMM) 272 MPV (7.4 - 10.4 FL) 7.9 Gran % (42.2 - 75.2 %) 83.6 H Lymphocytes % (20.5 - 51.1 %) 4.6 L Monocytes % (1.7 - 9.3 %) 10.3 H Eosinophils % (0 - 5 %) 1.1 Basophils % (0.0 - 2.0 %) 0.4 Absolute Granulocytes (1.4 - 6.5 /CUMM) 11.2 H Absolute Lymphocytes (1.2 - 3.4 /CUMM) 0.6 L Absolute Monocytes (0.10 - 0.60 /CUMM) 1.4 H Absolute Eosinophils (0.0 - 0.7 /CUMM) 0.1 Absolute Basophils (0.0 - 0.2 /CUMM) 0.1 Platelet Estimate (ADEQUATE) ADEQUATE Anisocytosis 1+ Admission Meds I reviewed the following Meds: Current Medications Sig/Bailee Start time Last Medication Dose Stop Time Status Admin Acetaminophen 650 MG Q6P PRN 03/15 0230 AC 03/15 (Tylenol) 0225 Acetaminophen 1,000 MG Q6P PRN 03/15 0230 AC (Ofirmev) Amlodipine Besylate 5 MG DAILY 03/15 0900 AC 03/15 (Norvasc) 0921 Aspirin Buffered 81 MG DAILY 03/15 0900 AC 03/15 (Ecotrin) 0921 Atorvastatin Calcium 80 MG DAILY 03/15 0900 AC 03/15 (Lipitor) 0935 Enoxaparin Sodium 40 MG DAILY@1500 03/14 1515 AC (Lovenox) Insulin Aspart 0 TIDAC 03/15 0800 AC 03/15 (NovoLOG) 1646 Insulin Aspart 0 AT BEDTIME 03/14 2100 AC 03/14 (NovoLOG) 2141 Metoprolol Tartrate 50 MG BID 03/14 2100 AC 03/15 (Lopressor) 0921 Oxacillin Sodium 2,000 MG Q4 03/14 1800 AC 03/15 (Oxacillin 2000MG 1404 Inj) Sodium Chloride 100 ML (Normal Saline 0.9%) Oxycodone/ 2 TAB Q6P PRN 03/15 0230 AC Acetaminophen (Percocet) US FINDINGS: Targeted evaluation of the left lateral chest wall/axilla in the region of clinical concern demonstrates heterogeneous subcutaneous fat compatible with edema/inflammation. No drainable fluid collection is demonstrated. IMPRESSION: No drainable fluid collection demonstrated. Assessment/Plan Assessment/Plan 62 Y/O MALE PMH SIG FOR CAD S/P CABG AND MULTIPLE STENTS, DM, HTN, HYPERLIPIDEMIA WITH RECENT DEVELOPMENT OF MULTIPLE CARBUNCLES SEEN AND TREATED BY DERMATOLOGY NOW WITH OF A NEW AREA OF CELLULITS AND POSSBILE DEEP ABSCESS FORMING ALONG THE LEFT LATERAL UPPER CHEST AREA. CONTINUE ON OXACILLIN -AWAIT BLOOD CX -PREVIOUS MSSA US IN AM TO LOOK FOR POSSIBLE FLUID COLLECTION TO DRAIN, NON SEEN YET REPEAT LABS WILL CONTINUE TO FOLLOW Consult Acknowledgment - Thank you for your consult request. Serg Palomares MD 03/16/18 1727: Assessment/Plan Consult Acknowledgment - Thank you for your consult request. Attending MD Review Statement Attending Statement Attending MD Statement: examined this patient, discuss w/resident/PA/RECORDS TECH, reviewed images
[2018-03-15 21:33] VITALS: BP 102/62
[2018-03-16 06:20] VITALS: BP 144/76
[2018-03-16 08:14] LABS: ABSOLUTE BASOPHIL COUNT 0 /CUMM (0.0-0.2); ABSOLUTE EOSINOPHIL COUNT 0.4 /CUMM (0.0-0.7); ABSOLUTE GRANULOCYTE CT 14.4 /CUMM (1.4-6.5); ABSOLUTE LYMPH COUNT 0.8 /CUMM (1.2-3.4); ABSOLUTE MONOCYTE COUNT 1.3 /CUMM (0.10-0.60); BASOPHIL % 0.1 % (0.0-2.0); EOSINOPHIL % 2.5 % (0-5); GRANULOCYTE % 85.2 % (42.2-75.2); HEMATOCRIT 36.3 % (42-52); MEAN CORPUSCULAR HGB 30.4 PG (27.0-31.0); MEAN CORPUSCULAR HGB CONC 33.9 G/DL (33.0-37.0); MEAN CORPUSCULAR VOLUME 89.6 FL (80.0-94.0); MEAN PLATELET VOLUME 7.7 FL (7.4-10.4); PLATELET COUNT 343 /CUMM (130-400); RED BLOOD CELL CT 4.05 /CUMM (4.70-6.10); WHITE BLOOD CELL COUNT 16.9 /CUMM (4.8-10.8)
--- NOTE | 2018-03-16 09:06 | PN- Housestaff ---
Subjective Follow-up For: #Cellulitis previous culture report grown MSSA Subjective: FSG 177. Patient reports pain on chest palpation. He denies fever, chills, nausea, vomiting, urinary or bowel symptoms Review of Systems Constitutional: Reports: see HPI. Objective Last 24 Hrs of Vital Signs/I&O Vital Signs Date Time Temp Pulse Resp B/P B/P Pulse O2 O2 Flow FiO2 Mean Ox Delivery Rate 03/16 1358 98.0 89 20 120/70 97 Room Air 03/16 0843 72 152/82 03/16 0843 72 152/82 03/16 0620 98.6 85 18 144/76 96 Room Air 03/15 2133 98.9 90 18 102/62 94 Room Air 03/15 2041 90 102/62 Intake & Output 03/16 1600 03/16 0800 03/16 0000 Intake Total 910 800 Output Total Balance 910 800 Intake, IV 450 200 Intake, Oral 460 600 Physical Exam General Appearance: Alert, Oriented X3, Cooperative, No Acute Distress Skin: Axillary and post chest mild skin erythema with induration Cardiovascular: Regular Rate, Normal S1, Normal S2, No Murmurs Lungs: Clear to Auscultation, Normal Air Movement Abdomen: Normal Bowel Sounds, Soft, No Tenderness Current Medications: Current Medications Sig/Bailee Start time Last Medication Dose Route Stop Time Status Admin Acetaminophen 650 MG Q6P PRN 03/15 0230 AC 03/16 PO 1427 Acetaminophen 1,000 MG Q6P PRN 03/15 0230 AC IV Amlodipine Besylate 5 MG DAILY 03/15 09 AC 03/16 PO 0843 Ampicillin Sodium/ 3,000 MG Q6 03/16 0603/16 Sulbactam Sodium IV 1211 Sodium Chloride 100 ML Aspirin Buffered 81 MG DAILY 03/15 09 AC 03/16 PO 0840 Atorvastatin Calcium 80 MG DAILY 03/15 09 AC 03/16 PO 0840 Enoxaparin Sodium 40 MG DAILY@1500 03/14 1515 AC SC Insulin Aspart 0 TIDAC 03/15 08 AC 03/16 SC 1211 Insulin Aspart 0 AT BEDTIME 03/14 2100 AC 03/14 SC 2141 Metoprolol Tartrate 50 MG BID 03/14 2100 03/16 PO 0843 Oxacillin Sodium 2,000 MG Q4 03/14 1800 DC 03/16 Sodium Chloride 100 ML IV 0154 Oxycodone/ 2 TAB Q6P PRN 03/15 0230 AC Acetaminophen PO Vancomycin HCl 1,000 MG Q18H 03/16 0600 AC 03/16 Sodium Chloride 250 ML IV 0628 Last 24 Hrs of Lab/Nathaniel Results Last 24 Hrs of Labs/Mics: Laboratory Tests 03/16/18 0625: CBC w Diff MAN DIFF ORDERED, RBC 4.05 L, MCV 89.6, MCH 30.4, MCHC 33.9, RDW 14.0, MPV 7.7, Gran % 85.2 H, Lymphocytes % 4.7 L, Monocytes % 7.5, Eosinophils % 2.5, Basophils % 0.1, Absolute Granulocytes 14.4 H, Segmented Neutrophils 69, Band Neutrophils 13 H, Absolute Lymphocytes 0.8 L, Lymphocytes 8 L, Monocytes 5, Absolute Monocytes 1.3 H, Eosinophils 2, Absolute Eosinophils 0.4, Basophils 2, Absolute Basophils 0, Metamyelocytes 1, Platelet Estimate VERIFIED BY SMEAR, Normocytic RBCs VERIFIED, Normochromic RBCs VERIFIED , Lyme Disease Antibody 0.15 Assessment/Plan Assessment: Mr Au a pleasant 62-year-old gentleman with past medical history of diabetes, coronary artery disease, hypertension, hyperlipidemia, quadruple bypass and sleep apnea (untreated) who presented to the emergency department on 03/14/2018 complaining of worsening pain and erythema in the left chest and left axillary area. #Cellulitis previous culture report grown MSSA Plan: * Continue IV oxacillin and vancomycin * We will monitor uptrending white ct * MRSA nares surveillance negative * Apply warm compresses and keep arm elevated * Continue home medications including: Lopressor, Norvasc, Aspirin and Lipitor * Accu-Cheks and Novollog SS. * Appreciate ID recommendations Diet: Diabetic DVT PPX: Lovenox Patient is a full code Problem List: 1. Cellulitis Pain Ratin Pain Location: R chest Pain Goal: Pain 4 or less Pain Plan: Percocet Tomorrow's Labs & Rationales: CBC
--- NOTE | 2018-03-16 11:21 | PN- Att Addend ---
Attending Addendum Attending Brief Note Patient seen and examined, feels almost the same. Patient is afebrile but his white blood cell count has increased. Lateral chest wall erythema and induration is still pretty significant. Vital Signs Date Time Temp Pulse Resp B/P B/P Pulse O2 O2 Flow FiO2 Mean Ox Delivery Rate 03/16 843 72 152/82 03/16 0843 72 152/82 03/16 0620 98.6 85 18 144/76 96 Room Air 03/15 2133 98.9 90 18 102/62 94 Room Air 03/15 2041 90 102/62 03/15 1408 97.7 97 20 118/90 97 Room Air on exam; aox3, nad. cv; s1,s2, rrr chest: + erythema and induration on left lateral chest wall. resp; clear abd; soft, nt, bs+ ext; no edema Laboratory Tests 03/16 625 Hematology CBC w Diff MAN DIFF ORDERED WBC (4.8 - 10.8 /CUMM) 16.9 H RBC (4.70 - 6.10 /CUMM) 4.05 L Hgb (14.0 - 18.0 G/DL) 12.3 L Hct (42 - 52 %) 36.3 L MCV (80.0 - 94.0 FL) 89.6 MCH (27.0 - 31.0 PG) 30.4 MCHC (33.0 - 37.0 G/DL) 33.9 RDW (11.5 - 14.5 %) 14.0 Plt Count (130 - 400 /CUMM) 343 MPV (7.4 - 10.4 FL) 7.7 Gran % (42.2 - 75.2 %) 85.2 H Lymphocytes % (20.5 - 51.1 %) 4.7 L Monocytes % (1.7 - 9.3 %) 7.5 Eosinophils % (0 - 5 %) 2.5 Basophils % (0.0 - 2.0 %) 0.1 Absolute Granulocytes (1.4 - 6.5 /CUMM) 14.4 H Segmented Neutrophils (42.2 - 75.2 %) Pending Absolute Lymphocytes (1.2 - 3.4 /CUMM) 0.8 L Absolute Monocytes (0.10 - 0.60 /CUMM) 1.3 H Absolute Eosinophils (0.0 - 0.7 /CUMM) 0.4 Absolute Basophils (0.0 - 0.2 /CUMM) 0 Serology Lyme Disease Antibody Pending A/P; 62 y/o M with pmh sig for diabetes, coronary artery disease, hypertension, hyperlipidemia, quadruple bypass and sleep apnea history of carbuncles in the past admitted with left lateral chest wall cellulitis. Patient currently on vancomycin and Unasyn but infectious disease. His white blood cell count is rising. Patient going for another ultrasound today to look for any collection if that needs to be drained. Has been seen by surgery and no incision and drainage was recommended or performed by surgical. We'll discuss with infectious disease about antibiotics. So for his cultures have remained negative. Blood sugars are running in acceptable range. DVT px: Lovenox. D/W present at bedside.
--- NOTE | 2018-03-16 11:38 | ULTRASOUND REPORT ---
EXAMINATION: US CHEST CLINICAL INFORMATION: History of MRSA. Left axillary cellulitis, induration and fever. Evaluate for abscess. COMPARISON: Ultrasound images of the left lateral chest wall/axilla from 03/14/2018. TECHNIQUE: Sonographic imaging of the left lateral chest wall/axilla was performed in the area of skin redness using a high-resolution linear 12 MHz transducer. FINDINGS: Mild edema in subcutaneous tissues in the examined region without a focal, organized fluid collection. No abscess. IMPRESSION: No evidence of soft tissue abscess in the region of cellulitis.
[2018-03-16 13:58] VITALS: BP 120/70
--- NOTE | 2018-03-16 15:31 | PN- Infect Dx ---
Subjective Subjective: Afebrile. He still complains of discomfort in the left lateral chest wall Objective Last 24 Hrs of Vital Signs/I&O Vital Signs Date Time Temp Pulse Resp B/P B/P Pulse O2 O2 Flow FiO2 Mean Ox Delivery Rate 03/16 1358 98.0 89 20 120/70 97 Room Air 03/16 0843 72 152/82 03/16 0843 72 152/82 03/16 0620 98.6 85 18 144/76 96 Room Air 03/15 2133 98.9 90 18 102/62 94 Room Air 03/15 2041 90 102/62 Intake & Output 03/16 1600 03/16 0800 03/16 0000 Intake Total 910 800 Output Total Balance 910 800 Intake, IV 450 200 Intake, Oral 460 600 Physical Exam Other Physical Findings: He appears comfortable in no acute distress Skin several scattered healing furuncles Chest induration and erythema over the lateral aspect of the left chest wall, below the axilla, mildly tender to palpation, with no open wound or drainage Results Last 24 Hours of Lab Results: Laboratory Tests 03/16 625 Hematology CBC w Diff MAN DIFF ORDERED WBC (4.8 - 10.8 /CUMM) 16.9 H RBC (4.70 - 6.10 /CUMM) 4.05 L Hgb (14.0 - 18.0 G/DL) 12.3 L Hct (42 - 52 %) 36.3 L MCV (80.0 - 94.0 FL) 89.6 MCH (27.0 - 31.0 PG) 30.4 MCHC (33.0 - 37.0 G/DL) 33.9 RDW (11.5 - 14.5 %) 14.0 Plt Count (130 - 400 /CUMM) 343 MPV (7.4 - 10.4 FL) 7.7 Gran % (42.2 - 75.2 %) 85.2 H Lymphocytes % (20.5 - 51.1 %) 4.7 L Monocytes % (1.7 - 9.3 %) 7.5 Eosinophils % (0 - 5 %) 2.5 Basophils % (0.0 - 2.0 %) 0.1 Absolute Granulocytes (1.4 - 6.5 /CUMM) 14.4 H Segmented Neutrophils (42.2 - 75.2 %) 69 Band Neutrophils (0.0 - 5.0 %) 13 H Absolute Lymphocytes (1.2 - 3.4 /CUMM) 0.8 L Lymphocytes (20.5 - 51.1 %) 8 L Monocytes (1.7 - 9.3 %) 5 Absolute Monocytes (0.10 - 0.60 /CUMM) 1.3 H Eosinophils (0 - 5.0 %) 2 Absolute Eosinophils (0.0 - 0.7 /CUMM) 0.4 Basophils (0.0 - 2.0 %) 2 Absolute Basophils (0.0 - 0.2 /CUMM) 0 Metamyelocytes (0.0 - 1.0 %) 1 Platelet Estimate (ADEQUATE) VERIFIED BY SMEAR Normocytic RBCs VERIFIED Normochromic RBCs VERIFIED Serology Lyme Disease Antibody (RATIO) 0.15 Last 24 Hours of Nathaniel Results: Blood cultures x2 March 14 negative Recent Imaging Studies: Ultrasound of the chest March 16 no evidence of any soft tissue abscess Assessment/Plan ID Impression: Cellulitis/induration of the left chest wall, with no history of trauma, in a patient with recurrent furunculosis. He remains afebrile but with a persistent leukocytosis despite now 2 days of empiric treatment, initially with Oxacillin and, more recently, with Unasyn and Vancomycin, with no significant improvement to date. The repeat ultrasound does not reveal any drainable collection but further imaging, for example with CT scan, may be helpful. Of note a previous culture from 3-1/2 months ago was positive for MSSA and a nares surveillance culture is negative for MRSA. Suggestion: 1. CT of the chest with IV contrast 2. Discontinue Vancomycin 3. Continue Unasyn pending above
--- NOTE | 2018-03-16 17:30 | PN- General Surgery ---
Subjective Subjective: pain and swelling persist. erythema stable, not improved. Objective Vital Signs and I&Os Vital Signs Date Time Temp Pulse Resp B/P B/P Pulse O2 O2 Flow FiO2 Mean Ox Delivery Rate 03/16 1358 98.0 89 20 120/70 97 Room Air 03/16 0843 72 152/82 03/16 0843 72 152/82 03/16 0620 98.6 85 18 144/76 96 Room Air 03/15 2133 98.9 90 18 102/62 94 Room Air 03/15 2041 90 102/62 Intake & Output 03/16 1600 03/16 0800 03/16 0000 03/15 1600 03/15 0800 03/15 0000 Intake Total 480 910 800 680 540 390 Output Total Balance 480 910 800 680 540 390 Intake, IV 450 200 200 300 150 Intake, Oral 480 460 600 480 240 240 Number 0 Bowel Movements Patient 286 lb Weight Physical Exam: gen; obese. nad. a/o x 3 heent; anicteric, perrl, eomi left axilla tender, indurated, erythema. Current Medications: Current Medications Sig/Bailee Start time Last Medication Dose Route Stop Time Status Admin Acetaminophen 650 MG Q6P PRN 03/15 0230 AC 03/16 PO 1427 Acetaminophen 1,000 MG Q6P PRN 03/15 0230 AC IV Amlodipine Besylate 5 MG DAILY 03/15 09 AC 03/16 PO 0843 Ampicillin Sodium/ 3,000 MG Q6 03/16 0600 AC 03/16 Sulbactam Sodium IV 1211 Sodium Chloride 100 ML Aspirin Buffered 81 MG DAILY 03/15 09 AC 03/16 PO 0840 Atorvastatin Calcium 80 MG DAILY 03/15 09 AC 03/16 PO 0840 Enoxaparin Sodium 40 MG DAILY@1500 03/14 1515 AC SC Insulin Aspart 0 TIDAC 03/15 08 AC 03/16 SC 1648 Insulin Aspart 0 AT BEDTIME 03/14 2100 AC 03/14 SC 2141 Metoprolol Tartrate 50 MG BID 03/14 2100 AC 03/16 PO 0843 Oxacillin Sodium 2,000 MG Q4 03/14 1800 DC 03/16 Sodium Chloride 100 ML IV 0154 Oxycodone/ 2 TAB Q6P PRN 03/15 0230 AC Acetaminophen PO Vancomycin HCl 1,000 MG Q18H 03/16 0600 DC 03/16 Sodium Chloride 250 ML IV 0628 Results Last 48 Hours of Labs: Laboratory Tests 03/16 03/15 0625 0630 Chemistry Sodium (137 - 145 mmol/L) 141 Potassium (3.5 - 5.1 mmol/L) 3.6 Chloride (98 - 107 mmol/L) 105 Carbon Dioxide (22 - 30 mmol/L) 20 L Anion Gap (5 - 16) 16 BUN (9 - 20 mg/dL) 15 Creatinine (0.7 - 1.2 mg/dL) 1.1 Estimated GFR (>60 ml/min) > 60 BUN/Creatinine Ratio (7 - 25 %) 13.6 Total Bilirubin (0.2 - 1.3 mg/dL) 1.2 Direct Bilirubin (< 0.4 mg/dL) 0.9 H AST (17 - 59 U/L) 14 L ALT (21 - 72 U/L) 29 Alkaline Phosphatase (< 127 U/L) 102 Total Protein (6.3 - 8.2 g/dL) 5.1 L Albumin (3.5 - 5.0 g/dL) 2.7 L Hematology CBC w Diff MAN DIFF ORDERED MAN DIFF ORDERED WBC (4.8 - 10.8 /CUMM) 16.9 H 13.4 H RBC (4.70 - 6.10 /CUMM) 4.05 L 3.94 L Hgb (14.0 - 18.0 G/DL) 12.3 L 11.9 L Hct (42 - 52 %) 36.3 L 35.4 L MCV (80.0 - 94.0 FL) 89.6 89.8 MCH (27.0 - 31.0 PG) 30.4 30.3 MCHC (33.0 - 37.0 G/DL) 33.9 33.8 RDW (11.5 - 14.5 %) 14.0 14.1 Plt Count (130 - 400 /CUMM) 343 272 MPV (7.4 - 10.4 FL) 7.7 7.9 Gran % (42.2 - 75.2 %) 85.2 H 83.6 H Lymphocytes % (20.5 - 51.1 %) 4.7 L 4.6 L Monocytes % (1.7 - 9.3 %) 7.5 10.3 H Eosinophils % (0 - 5 %) 2.5 1.1 Basophils % (0.0 - 2.0 %) 0.1 0.4 Absolute Granulocytes (1.4 - 6.5 /CUMM) 14.4 H 11.2 H Segmented Neutrophils (42.2 - 75.2 %) 69 Band Neutrophils (0.0 - 5.0 %) 13 H Absolute Lymphocytes (1.2 - 3.4 /CUMM) 0.8 L 0.6 L Lymphocytes (20.5 - 51.1 %) 8 L Monocytes (1.7 - 9.3 %) 5 Absolute Monocytes (0.10 - 0.60 /CUMM) 1.3 H 1.4 H Eosinophils (0 - 5.0 %) 2 Absolute Eosinophils (0.0 - 0.7 /CUMM) 0.4 0.1 Basophils (0.0 - 2.0 %) 2 Absolute Basophils (0.0 - 0.2 /CUMM) 0 0.1 Metamyelocytes (0.0 - 1.0 %) 1 Platelet Estimate (ADEQUATE) VERIFIED BY SMEAR ADEQUATE Normocytic RBCs VERIFIED Normochromic RBCs VERIFIED Anisocytosis 1+ Serology Lyme Disease Antibody (RATIO) 0.15 Recent Imaging Studies: ultrasound x 2 neg for abscess Assessment/Plan Assessment/Plan No improvement in cellulitis with worsening leukocytosis. Ultrasound unrevealing x 2. Highly suspicious for abscess. Agree with CT. If abscess found, will need operative drainage under general anesthesia. Please make hime NPO after midnight.
[2018-03-16 22:30] VITALS: BP 118/64
--- NOTE | 2018-03-16 23:07 | CT SCAN REPORT ---
EXAMINATION: CT CHEST WITH CONTRAST CLINICAL INFORMATION: Left axillary cellulitis with induration. COMPARISON: Ultrasound from earlier today. Chest CT performed 08/03/2012. TECHNIQUE: Multidetector volumetric CT imaging of the chest was obtained after the administration of 95 mL of Optiray 320 intravenous contrast without immediate adverse reactions. Axial MIP volume rendering provided. Sagittal and coronal reformatted images were obtained. DLP: 750 mGy-cm FINDINGS: LUNGS: The central airways are patent. Linear atelectasis/scarring in the lingula. Thin-walled cyst seen in the right upper lobe in the hilar region, series 3 image 23. This is unchanged. No consolidation. No pneumothorax. No suspicious pulmonary nodule. MEDIASTINUM: The heart is normal in size. Coronary artery calcifications are present. No pericardial effusion. No mediastinal lymphadenopathy. The thyroid gland is unremarkable. PLEURA: There is no pleural effusion. No pleural mass or thickening. AXILLA: The left axilla is not fully included on the iidfg-ul-[id number] of this study due to the size of the patient. There is partial visualization of loculated fluid with adjacent stranding and associated skin thickening. The full extent of this fluid is not defined. No definite evidence of peripheral rim enhancement. UPPER ABDOMEN: Unremarkable. OSSEOUS STRUCTURES: No acute or suspicious osseous abnormality. Multilevel degenerative changes of the spine. IMPRESSION: The left axilla is not fully included on the vapdx-mi-[id number] of this study. There is partial visualization of loculation of fluid in the soft tissues with adjacent stranding and associated skin thickening. While there is no rim-enhancing wall to suggest a well formed abscess/collection, phlegmon is a consideration.
[2018-03-17 06:20] VITALS: BP 134/76
--- NOTE | 2018-03-17 07:13 | PN- Housestaff ---
Nievse Carvajal 03/17/18 0713: Subjective Follow-up For: #Chest cellulitis Subjective: FSG 232, 162, 132. Patient denies SOB, palpitations, nausea or vomiting. Reports mild skin tenderness Review of Systems Constitutional: Reports: see HPI. Objective Last 24 Hrs of Vital Signs/I&O Vital Signs Date Time Temp Pulse Resp B/P B/P Pulse O2 O2 Flow FiO2 Mean Ox Delivery Rate 03/17 06 98.1 90 18 134/76 95 Room Air 03/16 2230 97.8 84 20 118/64 96 Room Air 03/16 2117 78 118/74 03/16 1358 98.0 89 20 120/70 97 Room Air 03/16 0843 72 152/82 03/16 0843 72 152/82 Intake & Output 03/17 1600 03/17 0800 03/17 0000 Intake Total 200 830 Output Total Balance 200 830 Intake, IV 200 130 Intake, Oral 0 700 Physical Exam General Appearance: Alert, Oriented X3, Cooperative, No Acute Distress Skin: Receding skin erythema with small pockets of induration Cardiovascular: Regular Rate, Normal S1, Normal S2 Lungs: Clear to Auscultation, Normal Air Movement Abdomen: Normal Bowel Sounds, Soft, No Tenderness Current Medications: Current Medications Sig/Bailee Start time Last Medication Dose Route Stop Time Status Admin Acetaminophen 650 MG .STK-MED ONE 03/16 1426 DC PO 03/16 1427 Acetaminophen 650 MG Q6P PRN 03/15 0230 03/17 PO 0546 Acetaminophen 1,000 MG Q6P PRN 03/15 0230 AC IV Amlodipine Besylate 5 MG DAILY 03/15 09 AC 03/16 PO 0843 Ampicillin Sodium/ 3,000 MG Q6 03/16 0600 AC 03/17 Sulbactam Sodium IV 0540 Sodium Chloride 100 ML Aspirin Buffered 81 MG DAILY 03/15 09 AC 03/16 PO 0840 Atorvastatin Calcium 80 MG DAILY 03/15 09 AC 03/16 PO 0840 Enoxaparin Sodium 40 MG DAILY@1500 03/14 1515 AC SC Insulin Aspart 0 TIDAC 03/15 0800 DC 03/16 SC 03/16 2355 1648 Insulin Aspart 0 AT BEDTIME 03/14 2100 DC 03/14 SC 03/16 2355 2141 Insulin Human Regular 4 UNITS .STK-MED ONE 03/17 0024 DC IV 03/17 0025 Insulin Human Regular 0 Q6 03/16 2359 AC 03/17 SC 0540 Metoprolol Tartrate 50 MG BID 03/14 2100 AC 03/16 PO 2117 Oxycodone/ 2 TAB Q6P PRN 03/15 0230 AC 03/16 Acetaminophen PO 1858 Patient Medication 1 ED ONE ONE 03/16 1830 DC 03/16 Teaching ED 03/16 183 2051 Vancomycin HCl 1,000 MG Q18H 03/16 0600 DC 03/16 Sodium Chloride 250 ML IV 0628 Assessment/Plan Assessment: Mr Au a pleasant 62-year-old gentleman with past medical history of diabetes, coronary artery disease, hypertension, hyperlipidemia, quadruple bypass and sleep apnea (untreated) who presented to the emergency department on 03/14/2018 complaining of worsening pain and erythema in the left chest and left axillary area. #Cellulitis previous culture report grown MSSA Plan: * CT chest showed loculations without wall off abcesses * We discontinued IV oxacillin and vancomycin * Continue IV Unasyn pending final cultures * We will monitor uptrending white ct * MRSA nares surveillance negative * Apply warm compresses and keep arm elevated * Continue home medications including: Lopressor, Norvasc, Aspirin and Lipitor * Accu-Cheks and Novollog SS. * Appreciate ID recommendations Diet: Diabetic DVT PPX: Lovenox Patient is a full code Problem List: 1. Cellulitis Pain Ratin Pain Location: Chest Pain Goal: Pain 4 or less Pain Plan: Percocet Tomorrow's Labs & Rationales: AMIRA Beltran MD,[facility] 03/17/18 1114: Attending MD Review Statement Attending Statement Attending MD Statement: examined this patient, discuss w/resident/PA/[employer]STRUMENT [employer]CH[employer]IC, agreed w/resident/PA/[employer]CRA[employer] INSTRUMENT MECHANIC, reviewed EMR data (avail), discussed with nursing, discussed with case mgmt, reviewed images, amended to note Attending Assessment/Plan: Patient seen and examined, overall feeling better. Erythema and induration on the left lateral chest wall has reduced. Patient remained afebrile and CBC from this morning is pending. Vital Signs Date Time Temp Pulse Resp B/P B/P Pulse O2 O2 Flow FiO2 Mean Ox Delivery Rate 03/17 1024 Room Air 03/17 0841 130/70 03/17 0840 130/70 03/17 0620 98.1 90 18 134/76 95 Room Air 03/16 2230 97.8 84 20 118/64 96 Room Air 03/16 2117 78 118/74 03/16 1358 98.0 89 20 120/70 97 Room Air on exam; aox3, nad. chest: + erythema and induration on left lateral chest wall which is improving. Labs: Pending. A/P; 62 y/o M with pmh sig for diabetes, coronary artery disease, hypertension, hyperlipidemia, quadruple bypass and sleep apnea history of carbuncles in the past admitted with left lateral chest wall cellulitis. CT of the chest did not show any contained abscess but there was a possibility of phlegmon. Clindamycin was discontinued and patient has been kept on Unasyn. Clinically it is improving. Will continue the Unasyn for now. Blood cultures remained negative. Continue the rest of the management. Patient on Lovenox for DVT prophylaxis.
[2018-03-17 11:11] LABS: ABSOLUTE BASOPHIL COUNT 0 /CUMM (0.0-0.2); ABSOLUTE EOSINOPHIL COUNT 0.3 /CUMM (0.0-0.7); ABSOLUTE GRANULOCYTE CT 9.9 /CUMM (1.4-6.5); ABSOLUTE LYMPH COUNT 0.7 /CUMM (1.2-3.4); ABSOLUTE MONOCYTE COUNT 0.7 /CUMM (0.10-0.60); BASOPHIL % 0.2 % (0.0-2.0); EOSINOPHIL % 2.5 % (0-5); HEMATOCRIT 36.1 % (42-52); MEAN CORPUSCULAR HGB 30.1 PG (27.0-31.0); MEAN CORPUSCULAR HGB CONC 33.3 G/DL (33.0-37.0); MEAN CORPUSCULAR VOLUME 90.3 FL (80.0-94.0); MEAN PLATELET VOLUME 7.6 FL (7.4-10.4); PLATELET COUNT 370 /CUMM (130-400); RBC DISTRIBUTION WIDTH 14.2 % (11.5-14.5); WHITE BLOOD CELL COUNT 11.6 /CUMM (4.8-10.8)
[2018-03-17 11:42] LABS: GRANULOCYTE % 84.9 % (42.2-75.2)
--- NOTE | 2018-03-17 13:54 | PN- Infect Dx ---
Subjective Subjective: Afebrile. He still complains of discomfort in the left chest. Objective Last 24 Hrs of Vital Signs/I&O Vital Signs Date Time Temp Pulse Resp B/P B/P Pulse O2 O2 Flow FiO2 Mean Ox Delivery Rate 03/17 1024 Room Air 03/17 0841 130/70 03/17 0840 130/70 03/17 0620 98.1 90 18 134/76 95 Room Air 03/16 2230 97.8 84 20 118/64 96 Room Air 03/16 2117 78 118/74 03/16 1358 98.0 89 20 120/70 97 Room Air Intake & Output 03/17 1600 03/17 0800 03/17 0000 Intake Total 200 830 Output Total Balance 200 830 Intake, IV 200 130 Intake, Oral 0 700 Physical Exam Other Physical Findings: He appears comfortable in no acute distress Chest indurated, erythematous and tender area over the left lateral chest wall persists, perhaps somewhat more localized than previous Results Last 24 Hours of Lab Results: Laboratory Tests 03/17 0935 Hematology CBC w Diff NO MAN DIFF REQ WBC (4.8 - 10.8 /CUMM) 11.6 H RBC (4.70 - 6.10 /CUMM) 4.00 L Hgb (14.0 - 18.0 G/DL) 12.0 L Hct (42 - 52 %) 36.1 L MCV (80.0 - 94.0 FL) 90.3 MCH (27.0 - 31.0 PG) 30.1 MCHC (33.0 - 37.0 G/DL) 33.3 RDW (11.5 - 14.5 %) 14.2 Plt Count (130 - 400 /CUMM) 370 MPV (7.4 - 10.4 FL) 7.6 Gran % (42.2 - 75.2 %) 84.9 H Lymphocytes % (20.5 - 51.1 %) 6.2 L Monocytes % (1.7 - 9.3 %) 6.2 Eosinophils % (0 - 5 %) 2.5 Basophils % (0.0 - 2.0 %) 0.2 Absolute Granulocytes (1.4 - 6.5 /CUMM) 9.9 H Absolute Lymphocytes (1.2 - 3.4 /CUMM) 0.7 L Absolute Monocytes (0.10 - 0.60 /CUMM) 0.7 H Absolute Eosinophils (0.0 - 0.7 /CUMM) 0.3 Absolute Basophils (0.0 - 0.2 /CUMM) 0 Last 24 Hours of Nathaniel Results: Blood cultures March 14 negative Recent Imaging Studies: CT of the chest March 16, somewhat limited due to his size, reveals partial visualization of the loculated fluid with adjacent stranding and associated skin thickening in the left axilla, with no rim-enhancing wall to suggest an abscess Assessment/Plan ID Impression: Persistent left chest wall inflammation, though he remains afebrile and white blood cell count has decreased, on Unasyn, Day 3 of treatment, with his blood cultures remaining negative. The CT scan does not suggest an abscess but the inflammation does appear to be localizing and he may ultimately require drainage. Surgical evaluation noted, with the recommendation for open, rather than percutaneous, drainage if he is found to have an abscess. Suggestion: 1. Warm compresses to the left chest wall 2. Surgical follow-up 3. Continue Unasyn
--- NOTE | 2018-03-17 14:43 | PN- General Surgery ---
Subjective Subjective: still sore. maybe mild improvement. CT poor quality as it didn't eval entire axilla. Objective Vital Signs and I&Os Vital Signs Date Time Temp Pulse Resp B/P B/P Pulse O2 O2 Flow FiO2 Mean Ox Delivery Rate 03/17 1024 Room Air 03/17 0841 130/70 03/17 0840 130/70 03/17 0620 98.1 90 18 134/76 95 Room Air 03/16 2230 97.8 84 20 118/64 96 Room Air 03/16 2117 78 118/74 Intake & Output 03/17 1600 03/17 0800 03/17 0000 03/16 1600 03/16 0800 03/16 0000 Intake Total 200 830 480 910 800 Output Total Balance 200 830 480 910 800 Intake, IV 200 130 450 200 Intake, Oral 0 700 480 460 600 Physical Exam: gen; obese. nad. axilla, induration and improved erythema. Results Last 48 Hours of Labs: Laboratory Tests 03/17 03/16 0935 0625 Hematology CBC w Diff NO MAN DIFF REQ MAN DIFF ORDERED WBC (4.8 - 10.8 /CUMM) 11.6 H 16.9 H RBC (4.70 - 6.10 /CUMM) 4.00 L 4.05 L Hgb (14.0 - 18.0 G/DL) 12.0 L 12.3 L Hct (42 - 52 %) 36.1 L 36.3 L MCV (80.0 - 94.0 FL) 90.3 89.6 MCH (27.0 - 31.0 PG) 30.1 30.4 MCHC (33.0 - 37.0 G/DL) 33.3 33.9 RDW (11.5 - 14.5 %) 14.2 14.0 Plt Count (130 - 400 /CUMM) 370 343 MPV (7.4 - 10.4 FL) 7.6 7.7 Gran % (42.2 - 75.2 %) 84.9 H 85.2 H Lymphocytes % (20.5 - 51.1 %) 6.2 L 4.7 L Monocytes % (1.7 - 9.3 %) 6.2 7.5 Eosinophils % (0 - 5 %) 2.5 2.5 Basophils % (0.0 - 2.0 %) 0.2 0.1 Absolute Granulocytes (1.4 - 6.5 /CUMM) 9.9 H 14.4 H Segmented Neutrophils (42.2 - 75.2 %) 69 Band Neutrophils (0.0 - 5.0 %) 13 H Absolute Lymphocytes (1.2 - 3.4 /CUMM) 0.7 L 0.8 L Lymphocytes (20.5 - 51.1 %) 8 L Monocytes (1.7 - 9.3 %) 5 Absolute Monocytes (0.10 - 0.60 /CUMM) 0.7 H 1.3 H Eosinophils (0 - 5.0 %) 2 Absolute Eosinophils (0.0 - 0.7 /CUMM) 0.3 0.4 Basophils (0.0 - 2.0 %) 2 Absolute Basophils (0.0 - 0.2 /CUMM) 0 0 Metamyelocytes (0.0 - 1.0 %) 1 Platelet Estimate (ADEQUATE) VERIFIED BY SMEAR Normocytic RBCs VERIFIED Normochromic RBCs VERIFIED Serology Lyme Disease Antibody (RATIO) 0.15 Assessment/Plan Assessment/Plan improved cellulitis. will hold on OR. continue abx. reserve abscess I&D for failure to improve or obvious signs.
[2018-03-17 22:05] VITALS: BP 140/80
[2018-03-18 06:29] VITALS: BP 122/72
--- NOTE | 2018-03-18 07:20 | PN- Housestaff ---
Nieves Carvajal 03/18/18 0720: Subjective Follow-up For: Chest cellulitis Subjective: FSG 198, 220. Patient denies SOB, palpitations, nausea or vomiting. Reports mild skin tenderness Review of Systems Constitutional: Reports: see HPI. Objective Last 24 Hrs of Vital Signs/I&O Vital Signs Date Time Temp Pulse Resp B/P B/P Pulse O2 O2 Flow FiO2 Mean Ox Delivery Rate 03/18 08 130/78 03/18 0806 130/78 03/18 629 97.8 79 20 122/72 98 Room Air 03/17 2205 97.1 78 20 140/80 98 Room Air 03/17 2037 75 140/80 Intake & Output 03/18 1600 03/18 0800 03/18 0000 Intake Total 700 730 Output Total Balance 700 730 Intake, IV 200 130 Intake, Oral 500 600 Physical Exam General Appearance: Alert, Oriented X3, Cooperative, No Acute Distress, Obese Skin: Improving small pocket on axillary induration with mild skin erythema Cardiovascular: Regular Rate, Normal S1, Normal S2 Lungs: Clear to Auscultation, Normal Air Movement Abdomen: Normal Bowel Sounds, Soft, No Tenderness Extremities: No Edema Current Medications: Current Medications Sig/Bailee Start time Last Medication Dose Route Stop Time Status Admin Acetaminophen 650 MG .STK-MED ONE 03/17 2032 DC PO 03/17 203 Acetaminophen 650 MG .STK-MED ONE 03/17 1555 DC PO 03/17 1556 Acetaminophen 650 MG .STK-MED ONE 03/17 1154 DC PO 03/17 1155 Acetaminophen 650 MG Q6P PRN 03/15 0230 AC 03/18 PO 0541 Acetaminophen 1,000 MG Q6P PRN 03/15 0230 AC IV Amlodipine Besylate 5 MG DAILY 03/15 09 AC 03/18 PO 0806 Ampicillin Sodium/ 3,000 MG Q6 03/16 0600 AC 03/18 Sulbactam Sodium IV 0541 Sodium Chloride 100 ML Aspirin Buffered 81 MG DAILY 03/15 900 AC 03/18 PO 0808 Atorvastatin Calcium 80 MG DAILY 03/15 09 AC 03/18 PO 0809 Enoxaparin Sodium 40 MG DAILY@1500 03/14 1515 AC SC Ibuprofen 800 MG Q8 03/18 0912 AC PO Insulin Aspart 0 AT BEDTIME 03/17 2145 AC 03/17 SC 2152 Insulin Aspart 0 TIDAC 03/17 1200 AC 03/18 SC 0808 Metoprolol Tartrate 50 MG BID 03/14 2100 AC 03/18 PO 0806 Oxycodone/ 2 TAB Q6P PRN 03/15 0230 DC 03/16 Acetaminophen PO 1858 Patient Medication 1 ED ONE ONE 03/17 1130 DC 03/17 Teaching ED 03/17 1131 1406 Tramadol HCl 50 MG Q6 PRN 03/18 0815 AC PO Tramadol HCl 50 MG ONCE ONE 03/18 0030 DC 03/18 PO 03/18 0031 0023 Last 24 Hrs of Lab/Nathaniel Results Last 24 Hrs of Labs/Mics: Laboratory Tests 03/18/18 0630: CBC w Diff NO MAN DIFF REQ, RBC 4.10 L, MCV 89.9, MCH 29.6, MCHC 33.0, RDW 14.4 , MPV 7.4, Gran % 83.2 H, Lymphocytes % 7.4 L, Monocytes % 6.8, Eosinophils % 2.3, Basophils % 0.3, Absolute Granulocytes 9.9 H, Absolute Lymphocytes 0.9 L, Absolute Monocytes 0.8 H, Absolute Eosinophils 0.3, Absolute Basophils 0 Assessment/Plan Assessment: Mr Au a pleasant 62-year-old gentleman with past medical history of diabetes, coronary artery disease, hypertension, hyperlipidemia, quadruple bypass and sleep apnea (untreated) who presented to the emergency department on 03/14/2018 complaining of worsening pain and erythema in the left chest and left axillary area. #Cellulitis previous culture report grown MSSA Plan: * CT chest showed loculations without wall off abcesses * We discontinued IV oxacillin and vancomycin * Continue IV Unasyn and will transition him to PO tomorrow * MRSA nares surveillance negative * Continue home medications including: Lopressor, Norvasc, Aspirin and Lipitor * Accu-Cheks and Novolog SS * Appreciate ID recommendations Diet: Diabetic DVT PPX: Lovenox Patient is a full code Problem List: 1. Cellulitis Pain Ratin Pain Location: axillary Pain Goal: Remain pain free Pain Plan: NA Tomorrow's Labs & Rationales: AMIRA Beltran MD,Samantha 03/18/18 1034: Attending MD Review Statement Attending Statement Attending MD Statement: examined this patient, discuss w/resident/PA/LIFE TRAINER, agreed w/resident/PA/LIFE TRAINER, discussed with family, reviewed EMR data (avail), discussed with nursing, discussed with case mgmt, reviewed images, amended to note Attending Assessment/Plan: Patient seen and examined, continues to show slow improvement. Still having a has off tenderness but certainly better than before. Patient remains afebrile. White blood count count remains in the same range. Vital Signs Date Time Temp Pulse Resp B/P B/P Pulse O2 O2 Flow FiO2 Mean Ox Delivery Rate 03/18 08 130/78 03/18 0806 130/78 03/18 0629 97.8 79 20 122/72 98 Room Air 03/17 2205 97.1 78 20 140/80 98 Room Air 03/17 2037 75 140/80 on exam; aox3, nad. cv; s1,s2, rrr resp; clear abd; soft, nt, bs+ ext; no edema skin: The left lateral chest wall area is less erythematous but still significantly indurated. Laboratory Tests 03/18 630 Hematology CBC w Diff NO MAN DIFF REQ WBC (4.8 - 10.8 /CUMM) 11.9 H RBC (4.70 - 6.10 /CUMM) 4.10 L Hgb (14.0 - 18.0 G/DL) 12.1 L Hct (42 - 52 %) 36.9 L MCV (80.0 - 94.0 FL) 89.9 MCH (27.0 - 31.0 PG) 29.6 MCHC (33.0 - 37.0 G/DL) 33.0 RDW (11.5 - 14.5 %) 14.4 Plt Count (130 - 400 /CUMM) 389 MPV (7.4 - 10.4 FL) 7.4 Gran % (42.2 - 75.2 %) 83.2 H Lymphocytes % (20.5 - 51.1 %) 7.4 L Monocytes % (1.7 - 9.3 %) 6.8 Eosinophils % (0 - 5 %) 2.3 Basophils % (0.0 - 2.0 %) 0.3 Absolute Granulocytes (1.4 - 6.5 /CUMM) 9.9 H Absolute Lymphocytes (1.2 - 3.4 /CUMM) 0.9 L Absolute Monocytes (0.10 - 0.60 /CUMM) 0.8 H Absolute Eosinophils (0.0 - 0.7 /CUMM) 0.3 Absolute Basophils (0.0 - 0.2 /CUMM) 0 A/P; 62 y/o M with pmh sig for diabetes, coronary artery disease, hypertension, hyperlipidemia, quadruple bypass and sleep apnea history of carbuncles in the past admitted with left lateral chest wall cellulitis. Patient has been followed by infectious disease and surgery. No surgical interventions needed at this time per Dr. Palomares. Patient remains on IV Unasyn. Will discuss further with infectious disease and surgery about any other further recommendations. Agree with adding tramadol for the pain management. DVT prophylaxis: Lovenox ordered but patient is refusing. He is ambulating. D/W at bedside.
[2018-03-18 08:26] LABS: ABSOLUTE BASOPHIL COUNT 0 /CUMM (0.0-0.2); ABSOLUTE EOSINOPHIL COUNT 0.3 /CUMM (0.0-0.7); ABSOLUTE GRANULOCYTE CT 9.9 /CUMM (1.4-6.5); ABSOLUTE LYMPH COUNT 0.9 /CUMM (1.2-3.4); ABSOLUTE MONOCYTE COUNT 0.8 /CUMM (0.10-0.60); BASOPHIL % 0.3 % (0.0-2.0); EOSINOPHIL % 2.3 % (0-5); HEMATOCRIT 36.9 % (42-52); MEAN CORPUSCULAR HGB 29.6 PG (27.0-31.0); MEAN CORPUSCULAR VOLUME 89.9 FL (80.0-94.0); MEAN PLATELET VOLUME 7.4 FL (7.4-10.4); PLATELET COUNT 389 /CUMM (130-400); RBC DISTRIBUTION WIDTH 14.4 % (11.5-14.5); WHITE BLOOD CELL COUNT 11.9 /CUMM (4.8-10.8)
[2018-03-18 09:51] LABS: GRANULOCYTE % 83.2 % (42.2-75.2)
--- NOTE | 2018-03-18 11:39 | PN- Infect Dx ---
Subjective Subjective: Afebrile. He continues to complain of pain in the left chest wall. Objective Last 24 Hrs of Vital Signs/I&O Vital Signs Date Time Temp Pulse Resp B/P B/P Pulse O2 O2 Flow FiO2 Mean Ox Delivery Rate 03/18 0806 130/78 03/18 0806 130/78 03/18 0629 97.8 79 20 122/72 98 Room Air 03/17 2205 97.1 78 20 140/80 98 Room Air 03/17 2037 75 140/80 Intake & Output 03/18 1600 03/18 0800 03/18 0000 Intake Total 700 730 Output Total Balance 700 730 Intake, IV 200 130 Intake, Oral 500 600 Physical Exam Other Physical Findings: He appears comfortable in no acute distress Chest marked induration of the left lateral chest wall below the axilla, with receding erythema, but with persistent tenderness Results Last 24 Hours of Lab Results: Laboratory Tests 03/18 630 Hematology CBC w Diff NO MAN DIFF REQ WBC (4.8 - 10.8 /CUMM) 11.9 H RBC (4.70 - 6.10 /CUMM) 4.10 L Hgb (14.0 - 18.0 G/DL) 12.1 L Hct (42 - 52 %) 36.9 L MCV (80.0 - 94.0 FL) 89.9 MCH (27.0 - 31.0 PG) 29.6 MCHC (33.0 - 37.0 G/DL) 33.0 RDW (11.5 - 14.5 %) 14.4 Plt Count (130 - 400 /CUMM) 389 MPV (7.4 - 10.4 FL) 7.4 Gran % (42.2 - 75.2 %) 83.2 H Lymphocytes % (20.5 - 51.1 %) 7.4 L Monocytes % (1.7 - 9.3 %) 6.8 Eosinophils % (0 - 5 %) 2.3 Basophils % (0.0 - 2.0 %) 0.3 Absolute Granulocytes (1.4 - 6.5 /CUMM) 9.9 H Absolute Lymphocytes (1.2 - 3.4 /CUMM) 0.9 L Absolute Monocytes (0.10 - 0.60 /CUMM) 0.8 H Absolute Eosinophils (0.0 - 0.7 /CUMM) 0.3 Absolute Basophils (0.0 - 0.2 /CUMM) 0 Last 24 Hours of Nathaniel Results: Blood cultures 2 March 14 remain negative Assessment/Plan ID Impression: Persistent left chest wall inflammation/induration, with a persistent leukocytosis, though he remains afebrile, on Unasyn, Day 4 of treatment, with his blood cultures remaining negative. The CT scan did not reveal any discrete collection, but it was an incomplete study, and suspect that he will ultimately require drainage. Have discussed with IR and repeat imaging can be considered if he does not improve. Suggestion: 1. Warm compresses to the left chest wall 2. Consider repeat CT of the left chest (and include the axilla) in the a.m. if he does not improve 3. Further management with regard to possible open drainage per Surgery 4. Continue Unasyn
--- NOTE | 2018-03-18 13:11 | PN- General Surgery ---
Subjective Subjective: pain worse last night. frustrated. no f/c/s. Objective Vital Signs and I&Os Vital Signs Date Time Temp Pulse Resp B/P B/P Pulse O2 O2 Flow FiO2 Mean Ox Delivery Rate 03/18 08 130/78 03/18 08 130/78 03/18 629 97.8 79 20 122/72 98 Room Air 03/175 97.1 78 20 140/80 98 Room Air 03/17 2037 75 140/80 Intake & Output 03/18 1600 03/18 0803/18 0000 03/17 1600 03/17 0803/17 0000 Intake Total 700 730 460 200 830 Output Total Balance 700 730 460 200 830 Intake, IV 200 130 100 200 130 Intake, Oral 500 600 360 0 700 Physical Exam: gen; obese. looks welln no distress\ heent; anicteric, perrl, eomik axilla; decreased induration and erythema. Current Medications: Current Medications Sig/Bailee Start time Last Medication Dose Route Stop Time Status Admin Acetaminophen 650 MG .STK-MED ONE 03/17 2032 DC PO 03/17 2033 Acetaminophen 650 MG .STK-MED ONE 03/17 1555 DC PO 03/17 1556 Acetaminophen 650 MG Q6P PRN 03/15 0230 AC 03/18 PO 0541 Acetaminophen 1,000 MG Q6P PRN 03/15 0230 AC IV Amlodipine Besylate 5 MG DAILY 03/15 09 AC 03/18 PO 0806 Ampicillin Sodium/ 3,000 MG Q6 03/16 0600 AC 03/18 Sulbactam Sodium IV 1159 Sodium Chloride 100 ML Aspirin Buffered 81 MG DAILY 03/15 09 AC 03/18 PO 0808 Atorvastatin Calcium 80 MG DAILY 03/15 0900 AC 03/18 PO 0809 Enoxaparin Sodium 40 MG DAILY@1500 03/14 1515 AC SC Ibuprofen 400 MG Q8 03/18 1400 CAN PO Ibuprofen 800 MG Q8 03/18 0912 DC PO Insulin Aspart 0 AT BEDTIME 03/17 2145 AC 03/17 SC 2152 Insulin Aspart 0 TIDAC 03/17 1200 AC 03/18 SC 1149 Metoprolol Tartrate 50 MG BID 03/14 2100 AC 03/18 PO 0806 Oxycodone/ 2 TAB Q6P PRN 03/15 0230 DC 05/29 Acetaminophen PO 1858 Tramadol HCl 50 MG Q6 PRN 03/18 0815 AC 03/18 PO 1306 Tramadol HCl 50 MG ONCE ONE 03/18 0030 DC 03/18 PO 03/18 0031 0023 Results Last 48 Hours of Labs: Laboratory Tests 03/18 03/17 0630 0935 Hematology CBC w Diff NO MAN DIFF REQ NO MAN DIFF REQ WBC (4.8 - 10.8 /CUMM) 11.9 H 11.6 H RBC (4.70 - 6.10 /CUMM) 4.10 L 4.00 L Hgb (14.0 - 18.0 G/DL) 12.1 L 12.0 L Hct (42 - 52 %) 36.9 L 36.1 L MCV (80.0 - 94.0 FL) 89.9 90.3 MCH (27.0 - 31.0 PG) 29.6 30.1 MCHC (33.0 - 37.0 G/DL) 33.0 33.3 RDW (11.5 - 14.5 %) 14.4 14.2 Plt Count (130 - 400 /CUMM) 389 370 MPV (7.4 - 10.4 FL) 7.4 7.6 Gran % (42.2 - 75.2 %) 83.2 H 84.9 H Lymphocytes % (20.5 - 51.1 %) 7.4 L 6.2 L Monocytes % (1.7 - 9.3 %) 6.8 6.2 Eosinophils % (0 - 5 %) 2.3 2.5 Basophils % (0.0 - 2.0 %) 0.3 0.2 Absolute Granulocytes (1.4 - 6.5 /CUMM) 9.9 H 9.9 H Absolute Lymphocytes (1.2 - 3.4 /CUMM) 0.9 L 0.7 L Absolute Monocytes (0.10 - 0.60 /CUMM) 0.8 H 0.7 H Absolute Eosinophils (0.0 - 0.7 /CUMM) 0.3 0.3 Absolute Basophils (0.0 - 0.2 /CUMM) 0 0 Assessment/Plan Assessment/Plan Overall slow improvement in cellulitis. Still no clinical evidence for abscess. Recommend abx and observation of the area. No need for repeat imaging. will base need for incision and drainage by examination. if he has continued improvement, d/c tomorrow. If worse plan drainage. will make final decision tomorrow morning. please make npo after midnight in case.
[2018-03-18 14:32] VITALS: BP 120/80
--- NOTE | 2018-03-18 15:24 | Patient Discharge Instructions ---
Discharge Instructions General Discharge Information You were seen/treated for: Chest cellulitis You had these procedures: Incision and drainage Special Instructions: Follow up with your PCP-Dr. Lackey within 1 week of discharge Complete your course of antibiotics Follow up with surgery-Dr. Palomares within 1 week of discharge Diet Recommended Diet: Diabetic Activity Full Activity/No Limits: Yes Acute Coronary Syndrome Inclusion Criteria At DC or during hospital stay patient has or had the following: ACS DIAGNOSIS No Discharge Core Measures Meds if any: Prescribed or Continued at Discharge Meds if any: NOT Prescribed or Continued at Discharge Congestive Heart Failure Inclusion Criteria At DC or during hospital stay patient has or had the following: CHF DIAGNOSIS No Discharge Core Measures Meds if any: Prescribed or Continued at Discharge Meds if any: NOT Prescribed or Continued at Discharge Cerebrovascular accident Inclusion Criteria At DC or during hospital stay patient has or had the following: CVA/TIA Diagnosis No Discharge Core Measures Meds if any: Prescribed or Continued at Discharge Meds if any: NOT Prescribed or Continued at Discharge Venous thromboembolism Inclusion Criteria VTE Diagnosis No VTE Type NONE VTE Confirmed by (Test) NONE Discharge Core Measures - Per Current guidelines, there needs to be overlap - treatment for the first 5 days of Warfarin therapy. - If discharged on Warfarin prior to 5 days of - overlap therapy, the patient will need to be - assessed for post discharge needs including - *Post discharge parental anticoagulation - *Warfarin and/or parental anticoagulation education - *Follow up date to check INR post discharge At least 5 days overlap therapy as Inpatient No Meds if any: Prescribed or Continued at Discharge Note: Overlap Therapy is Warfarin and Anticoagulant Meds if any: NOT Prescribed or Continued at Discharge
[2018-03-18 22:45] VITALS: BP 159/79
[2018-03-19 06:04] VITALS: BP 149/88
--- NOTE | 2018-03-19 07:36 | PN- Housestaff ---
Nieves Carvajal 03/19/18 0736: Subjective Follow-up For: Chest cellulitis Subjective: Patient reports persistent tenderness in L axillary area. He also reports mild hand swelling at previous IV access site. He denies fever, chills, nausea, vomiting, urinary or bowel symptoms Review of Systems Constitutional: Reports: see HPI. Objective Last 24 Hrs of Vital Signs/I&O Vital Signs Date Time Temp Pulse Resp B/P B/P Pulse O2 O2 Flow FiO2 Mean Ox Delivery Rate 03/19 0956 75 149/88 03/19 0956 75 149/88 03/19 0604 98.4 75 22 149/88 97 Room Air 03/18 2245 98.7 81 20 159/79 99 03/18 2048 81 20 159/79 03/18 1432 98.4 80 18 120/80 96 Room Air Intake & Output 03/19 1600 03/19 0800 03/19 0000 Intake Total 100 500 Output Total Balance 100 500 Intake, IV 100 100 Intake, Oral 0 400 Physical Exam General Appearance: Alert, Oriented X3, Cooperative, No Acute Distress Skin: Improving loculated right axilla Cardiovascular: Regular Rate, Normal S1, Normal S2 Lungs: Clear to Auscultation, Normal Air Movement Abdomen: Normal Bowel Sounds, Soft, No Tenderness Extremities: No Edema Current Medications: Current Medications Sig/Bailee Start time Last Medication Dose Route Stop Time Status Admin Acetaminophen 325 MG .STK-MED ONE 03/19 0009 DC PO 03/19 0010 Acetaminophen 650 MG Q6P PRN 03/15 0230 AC 03/19 PO 0014 Acetaminophen 1,000 MG Q6P PRN 03/15 0230 AC 03/19 IV 1005 Amlodipine Besylate 5 MG DAILY 03/15 900 AC 03/19 PO 0956 Ampicillin Sodium/ 3,000 MG Q6 03/16 06 AC 03/19 Sulbactam Sodium IV 0601 Sodium Chloride 100 ML Aspirin Buffered 81 MG DAILY 03/15 900 AC 03/19 PO 0956 Atorvastatin Calcium 80 MG DAILY 03/15 900 AC 03/19 PO 0956 Enoxaparin Sodium 40 MG DAILY@1500 03/14 1515 AC SC Insulin Aspart 0 AT BEDTIME 03/17 2145 DC 03/18 SC 2048 Insulin Aspart 0 TIDAC 03/17 1200 DC 03/19 SC 09 Insulin Human Regular 0 Q6 03/19 0100 AC 03/19 SC 0602 Metoprolol Tartrate 50 MG BID 03/14 2100 AC 03/19 PO 0956 Polyethylene Glycol 17 GM DAILY 03/19 0928 DC PO Sodium Chloride 1,000 ML Q20H 03/19 0930 03/19 IV 0957 Tramadol HCl 50 MG Q6 PRN 03/18 0815 AC 03/18 PO 2048 Last 24 Hrs of Lab/Nathaniel Results Last 24 Hrs of Labs/Mics: Laboratory Tests 03/19/18629: CBC w Diff NO MAN DIFF REQ, RBC 4.07 L, MCV 90.3, MCH 30.0, MCHC 33.2, RDW 13.9 , MPV 7.6, Gran % 82.4 H, Lymphocytes % 8.7 L, Monocytes % 6.8, Eosinophils % 1.7, Basophils % 0.4, Absolute Granulocytes 9.7 H, Absolute Lymphocytes 1.0 L, Absolute Monocytes 0.8 H, Absolute Eosinophils 0.2, Absolute Basophils 0 Assessment/Plan Assessment: Mr Au a pleasant 62-year-old gentleman with past medical history of diabetes, coronary artery disease, hypertension, hyperlipidemia, quadruple bypass and sleep apnea (untreated) who presented to the emergency department on 03/14/2018 complaining of worsening pain and erythema in the left chest and left axillary area. #Cellulitis previous culture report grown MSSA Plan: * IR ultrasound guided I&D today * CT chest showed loculations without wall off abcesses * We discontinued IV oxacillin and vancomycin * Continue IV Unasyn and will transition him to PO upon discharge * MRSA nares surveillance negative * Continue home medications including: Lopressor, Norvasc, Aspirin and Lipitor * Accu-Cheks and Novolog SS * Appreciate ID recommendations Diet: Diabetic DVT PPX: Lovenox Patient is a full code Problem List: 1. Cellulitis Pain Ratin Pain Location: Chest Pain Goal: Pain 4 or less Pain Plan: NA Tomorrow's Labs & Rationales: Samantha Camejo MD 03/19/18 1114: Attending MD Review Statement Attending Statement Attending Statement: examined this patient, discuss w/resident/PA/[employer], agreed w/resident/PA/[employer], reviewed EMR data (avail), discussed with nursing, discussed with case mgmt, reviewed images, amended to note Attending Assessment/Plan: Patient seen and examined, the left lateral chest wall area looks almost the same. Erythema is improved with intubation is still significant. White blood cell count has not improved. Vital Signs Date Time Temp Pulse Resp B/P B/P Pulse O2 O2 Flow FiO2 Mean Ox Delivery Rate 03/19 0956 75 149/88 03/19 0956 75 149/88 03/19 0604 98.4 75 22 149/88 97 Room Air 03/18 2245 98.7 81 20 159/79 99 03/18 2048 81 20 159/79 03/18 1432 98.4 80 18 120/80 96 Room Air on exam; aox3, nad. cv; s1,s2, rrr resp; clear abd; soft, nt, bs+ ext; no edema skin: The left lateral chest wall area is less erythematous but still significantly indurated. Laboratory Tests 03/19 630 Hematology CBC w Diff NO MAN DIFF REQ WBC (4.8 - 10.8 /CUMM) 11.8 H RBC (4.70 - 6.10 /CUMM) 4.07 L Hgb (14.0 - 18.0 G/DL) 12.2 L Hct (42 - 52 %) 36.8 L MCV (80.0 - 94.0 FL) 90.3 MCH (27.0 - 31.0 PG) 30.0 MCHC (33.0 - 37.0 G/DL) 33.2 RDW (11.5 - 14.5 %) 13.9 Plt Count (130 - 400 /CUMM) 388 MPV (7.4 - 10.4 FL) 7.6 Gran % (42.2 - 75.2 %) 82.4 H Lymphocytes % (20.5 - 51.1 %) 8.7 L Monocytes % (1.7 - 9.3 %) 6.8 Eosinophils % (0 - 5 %) 1.7 Basophils % (0.0 - 2.0 %) 0.4 Absolute Granulocytes (1.4 - 6.5 /CUMM) 9.7 H Absolute Lymphocytes (1.2 - 3.4 /CUMM) 1.0 L Absolute Monocytes (0.10 - 0.60 /CUMM) 0.8 H Absolute Eosinophils (0.0 - 0.7 /CUMM) 0.2 Absolute Basophils (0.0 - 0.2 /CUMM) 0 A/P; 62 y/o M with pmh sig for diabetes, coronary artery disease, hypertension, hyperlipidemia, quadruple bypass and sleep apnea history of carbuncles in the past admitted with left lateral chest wall cellulitis. Discussed with Dr. Palomares and Dr. Quinones. Surgery does not think that there is any surgical intervention that needs to be done. ID things that we still need culture to see if there is any MRSA. ID recommends taking the tissue culture to intervention radiology. Dr. Quinones spoke with the patient who seems to be resistant for any kind of procedure until unless surgical doctor thinks that this is necessary. In the meantime patient remains on IV Unasyn. He still has significant area of induration and leukocytosis but he's not ready to get switched to oral antibiotics yet. I will try to talk to the patient, surgeon again and see what would be the next step. Continue current management. Patient on Lovenox for DVT prophylaxis. Patient was kept nothing by mouth after midnight for possible procedure today and will be hydrated gently with IV fluids.
[2018-03-19 09:41] LABS: ABSOLUTE BASOPHIL COUNT 0 /CUMM (0.0-0.2); ABSOLUTE EOSINOPHIL COUNT 0.2 /CUMM (0.0-0.7); ABSOLUTE GRANULOCYTE CT 9.7 /CUMM (1.4-6.5); ABSOLUTE MONOCYTE COUNT 0.8 /CUMM (0.10-0.60); BASOPHIL % 0.4 % (0.0-2.0); EOSINOPHIL % 1.7 % (0-5); GRANULOCYTE % 82.4 % (42.2-75.2); HEMATOCRIT 36.8 % (42-52); MEAN CORPUSCULAR HGB CONC 33.2 G/DL (33.0-37.0); MEAN CORPUSCULAR VOLUME 90.3 FL (80.0-94.0); MEAN PLATELET VOLUME 7.6 FL (7.4-10.4); PLATELET COUNT 388 /CUMM (130-400); RBC DISTRIBUTION WIDTH 13.9 % (11.5-14.5); RED BLOOD CELL CT 4.07 /CUMM (4.70-6.10); WHITE BLOOD CELL COUNT 11.8 /CUMM (4.8-10.8)
--- NOTE | 2018-03-19 11:24 | PN- Infect Dx ---
Subjective Subjective: Afebrile. He continues to complain of pain in the left chest wall Objective Last 24 Hrs of Vital Signs/I&O Vital Signs Date Time Temp Pulse Resp B/P B/P Pulse O2 O2 Flow FiO2 Mean Ox Delivery Rate 03/19 0956 75 149/88 03/19 0956 75 149/88 03/19 0604 98.4 75 22 149/88 97 Room Air 03/18 2245 98.7 81 20 159/79 99 03/18 2048 81 20 159/79 03/18 1432 98.4 80 18 120/80 96 Room Air Intake & Output 03/19 1600 03/19 0800 03/19 0000 Intake Total 100 500 Output Total Balance 100 500 Intake, IV 100 100 Intake, Oral 0 400 Physical Exam Other Physical Findings: He appears comfortable in no acute distress Chest persistent, though slightly decreased, induration of the left chest wall, with decreased erythema but with persistent tenderness Results Last 24 Hours of Lab Results: Laboratory Tests 03/19 630 Hematology CBC w Diff NO MAN DIFF REQ WBC (4.8 - 10.8 /CUMM) 11.8 H RBC (4.70 - 6.10 /CUMM) 4.07 L Hgb (14.0 - 18.0 G/DL) 12.2 L Hct (42 - 52 %) 36.8 L MCV (80.0 - 94.0 FL) 90.3 MCH (27.0 - 31.0 PG) 30.0 MCHC (33.0 - 37.0 G/DL) 33.2 RDW (11.5 - 14.5 %) 13.9 Plt Count (130 - 400 /CUMM) 388 MPV (7.4 - 10.4 FL) 7.6 Gran % (42.2 - 75.2 %) 82.4 H Lymphocytes % (20.5 - 51.1 %) 8.7 L Monocytes % (1.7 - 9.3 %) 6.8 Eosinophils % (0 - 5 %) 1.7 Basophils % (0.0 - 2.0 %) 0.4 Absolute Granulocytes (1.4 - 6.5 /CUMM) 9.7 H Absolute Lymphocytes (1.2 - 3.4 /CUMM) 1.0 L Absolute Monocytes (0.10 - 0.60 /CUMM) 0.8 H Absolute Eosinophils (0.0 - 0.7 /CUMM) 0.2 Absolute Basophils (0.0 - 0.2 /CUMM) 0 Last 24 Hours of Nathaniel Results: Blood cultures March 14 remain negative Assessment/Plan ID Impression: Persistent left chest wall inflammation/induration, with a persistent leukocytosis, though he remains afebrile, on Unasyn, Day 5 of treatment, with his blood cultures remaining negative. The recent CT scan did not reveal any discrete collection, but, as discussed, feel that an aspiration should be considered, in an attempt to identify a specific pathogen, with catheter drainage if a collection is identified. Suggestion: 1. Would pursue a fine-needle aspiration of the left chest wall under ultrasound by IR 2. Continue Unasyn pending above
--- NOTE | 2018-03-19 11:36 | Discharge Summary ---
Visit Information Visit Dates Admission Date: 03/14/18 Discharge Date: 03/22/18 Hospital Course Course Attending Physician: Samantha Beltran MD Primary Care Physician: Ziyad COLLAZO,Al Dodd [facility] Course: Mr Au a pleasant 62-year-old gentleman with past medical history of recurrent furunculosis, diabetes, coronary artery disease, hypertension, hyperlipidemia, quadruple bypass and sleep apnea (untreated) who presented to the emergency department on 03/14/2018 complaining of worsening pain and erythema in the left chest and left axillary area. He was admitted to the [facility] medical floor for further evaluation and management #Left axilla/chest Cellulitis On admission he has a white count of 14,000 with a low grade fever Tmax 99.7. He was started on IV Unasyn and Vancomycin but after no signs of improvement ID was consulted for further recommendations. Blood cultures were drawn that showed no growth. MRSA nares surveillance was negative. He was switched to IV Oxacillin. Imaging did not show any abscess formation. Upon further investigation we consulted IR to perform an ultrasound guided aspiration of his left chest/axilla induration and his wound culture eventually grew MSSA. General surgery performed an I&D which revealed a large amount of purulence just below the skin infra- axillary crease, a large abscess cavity tracking laterally and posteriorly deep to the investing fascia. A krystal was inserted for further drainage. He was continued on IV Oxacillin and after further improvement and his white count trended down to normal. He was transitioned to Cephelaxin to complete an additional 7-day course. He was discharged home to follow up with surgery for removal of the krystal. #Chronic medical condtions We continued his home medications We performed Accu-Cheks and he was given Novolog on a sliding scale Allergies: Coded Allergies: amiodarone (Severe, HIVES AND SOB 03/14/18) hydrocodone (Severe, HIVES AND SOB 03/14/18) Pertinent Lab Results: 03/19/18- EXAM TYPE: US - US-GUIDANCE PLAN: The patient was stable after the procedure and was transferred to the interventional recovery area. The patient will be transferred to the floor. 03/16/18-1421 EXAM TYPE: CAT - CT CHEST W IV CONTRAST IMPRESSION: The left axilla is not fully included on the [id number] of this study. There is partial visualization of loculation of fluid in the soft tissues with adjacent stranding and associated skin thickening. While there is no rim-enhancing wall to suggest a well formed abscess/collection, phlegmon is a consideration. 03/16/18-0600 EXAM TYPE: US - US-CHEST IMPRESSION: No evidence of soft tissue abscess in the region of cellulitis. 03/14/18-1135 EXAM TYPE: US - US-CHEST IMPRESSION: No drainable fluid collection demonstrated. Disposition Summary Disposition Principal Diagnosis: left axilla/chest cellulitis Additional Diagnosis: as above Discharge Disposition: home or self care Discharge Instructions General Discharge Information Code Status: Full Code Patient's Diet: Regular Patient's Activity: Full Follow-Up Instructions/Appts: Follow up with your PCP-Dr. Lackey within 1 week of discharge Complete your course of antibiotics Follow up with surgery-Dr. Palomares within 1 week of discharge Medications at Discharge Discharge Medications: Stop taking the following medications: Clindamycin Phosphate (Clindamycin Phosphate) 1 % GEL..GRAM. On the skin TWICE DAILY Qty = 30 [BENZOYL PEROXIDE] On the skin TWICE DAILY Continue taking these medications: Aspirin (Ecotrin*) 81 MG TABLET.DR 1 Tablet ORAL DAILY Comments: Last Taken:03/22/18 Time:9AM Glyburide (Glyburide) 5 MG TABLET 1 Tablet ORAL TWICE DAILY Qty = 180 Comments: NOT GIVEN Metformin HCl (Metformin HCl) 1,000 MG TABLET 1 Tablet ORAL TWICE DAILY Qty = 180 Comments: NOT GIVEN Linagliptin (Tradjenta) 5 MG TABLET 1 Tablet ORAL Every Morning Qty = 90 Comments: NOT GIVEN Metoprolol Tartrate (Metoprolol Tartrate) 50 MG TABLET 1 Tablet ORAL TWICE DAILY Qty = 180 Comments: Last Taken:03/22/18 Time:9AM Atorvastatin Calcium (Atorvastatin Calcium) 80 MG TABLET 1 Tablet ORAL DAILY Qty = 90 Comments: Last Taken:03/22/18 Time:9AM Amlodipine Besylate (Amlodipine Besylate) 5 MG TABLET 1 Tablet ORAL DAILY Comments: Last Taken:03/22/18 Time: 9AM Dapagliflozin Propanediol (Farxiga) 10 MG TABLET 1 Tablet ORAL DAILY Qty = 90 Comments: NOT GIVEN Naproxen Sodium (Aleve) 220 MG TABLET 2 Tablet ORAL Q12H as needed for PAIN Start taking the following new medications: Cephalexin (Cephalexin) 500 MG CAPSULE 500 Milligram ORAL EVERY SIX HOURS Qty = 28 No Refills Comments: Last Taken:03/22/18 Time:2PM Copies To: Stacie COLLAZO,Dimitri Jiang; Jelani COLLAZO,Serg Grant
--- NOTE | 2018-03-19 12:28 | PN- General Surgery ---
Subjective Subjective: stable. c/o pain at swelling sites. Objective Vital Signs and I&Os Vital Signs Date Time Temp Pulse Resp B/P B/P Pulse O2 O2 Flow FiO2 Mean Ox Delivery Rate 03/19 0956 75 149/88 03/19 0956 75 149/88 03/19 0604 98.4 75 22 149/88 97 Room Air 03/18 2245 98.7 81 20 159/79 99 03/18 2048 81 20 159/79 03/18 1432 98.4 80 18 120/80 96 Room Air Intake & Output 03/19 1600 03/19 0800 03/19 0000 03/18 1600 03/18 0803/18 0000 Intake Total 100 500 460 700 730 Output Total Balance 100 500 460 700 730 Intake, IV 100 100 100 200 130 Intake, Oral 0 400 360 500 600 Physical Exam: improved erythema left axilla. less induration. still no fluctuance. tender. Results Last 48 Hours of Labs: Laboratory Tests 03/19 03/18 0630 0630 Hematology CBC w Diff NO MAN DIFF REQ NO MAN DIFF REQ WBC (4.8 - 10.8 /CUMM) 11.8 H 11.9 H RBC (4.70 - 6.10 /CUMM) 4.07 L 4.10 L Hgb (14.0 - 18.0 G/DL) 12.2 L 12.1 L Hct (42 - 52 %) 36.8 L 36.9 L MCV (80.0 - 94.0 FL) 90.3 89.9 MCH (27.0 - 31.0 PG) 30.0 29.6 MCHC (33.0 - 37.0 G/DL) 33.2 33.0 RDW (11.5 - 14.5 %) 13.9 14.4 Plt Count (130 - 400 /CUMM) 388 389 MPV (7.4 - 10.4 FL) 7.6 7.4 Gran % (42.2 - 75.2 %) 82.4 H 83.2 H Lymphocytes % (20.5 - 51.1 %) 8.7 L 7.4 L Monocytes % (1.7 - 9.3 %) 6.8 6.8 Eosinophils % (0 - 5 %) 1.7 2.3 Basophils % (0.0 - 2.0 %) 0.4 0.3 Absolute Granulocytes (1.4 - 6.5 /CUMM) 9.7 H 9.9 H Absolute Lymphocytes (1.2 - 3.4 /CUMM) 1.0 L 0.9 L Absolute Monocytes (0.10 - 0.60 /CUMM) 0.8 H 0.8 H Absolute Eosinophils (0.0 - 0.7 /CUMM) 0.2 0.3 Absolute Basophils (0.0 - 0.2 /CUMM) 0 0 Assessment/Plan Assessment/Plan Improved cellulitis and induration. still no clinical abscess to drain. continue medical management. will follow. if patient discharged, can f/u with me in office next week. I feel comfortable with that plan of care given his slow but progressive improvement.
[2018-03-19 13:54] VITALS: BP 124/80
[2018-03-19 14:03] VITALS: BP 130/80
--- NOTE | 2018-03-19 16:45 | ULTRASOUND REPORT ---
CLINICAL HISTORY: The patient is a 62-year-old male with left axillary inflammation, who presents to interventional radiology for needle aspiration. PROCEDURES: 1. Limited ultrasound evaluation of the left axilla. 2. Aspiration of a left axillary abscess. PHYSICIANS: Moriah Merritt M.D., Ph.D. (attending). MEDICATIONS: 8 mL of 1% lidocaine SQ. COMPLICATIONS: None. ESTIMATED BLOOD LOSS: <5 mL. SPECIMENS: Left axillary abscess aspirate. IMPLANT: None. SITE MARKING: As part of the preprocedure verification policy, a site marking procedure was initiated. Due to the nature the procedure, the insertion site could not be predetermined thus invoking the policy of exemption to site laterality and marking. Insertion site marking was performed in the procedure room in conjunction with imaging confirmation. PROCEDURE NOTE: Informed consent was obtained from the patient prior to the procedure. During this process, the procedure and potential alternatives were explained along with the intended outcome and benefits. The risks of the procedure, including the possibility of an unsuccessful procedure, as well as the risk of not doing the procedure, were discussed. The patient was given the opportunity to ask questions regarding the procedure and appeared competent to make decisions. A signed consent form documenting this discussion was placed in the medical record. A time-out procedure was performed. The patient was placed supine on the US table with left arm over his head. The left axilla was prepped and draped in usual sterile fashion. All elements of maximal sterile barrier technique followed including use of cap, mask, sterile gown, sterile gloves, a sterile full body drape and hand hygiene. Also followed skin preparation with 2% chlorhexidine for cutaneous antisepsis, and sterile ultrasound preparation with sterile gel and probe cover when applicable. 8 mL of 1% lidocaine was used to obtain local anesthesia of the skin and deeper tissues. A 5 Albanian Yueh catheter was advanced into the hypoechoic collection deep within the left axilla. Purulent fluid was aspirated maximally yielding 78 mL. The catheter was withdrawn and a sterile bandage applied. The patient tolerated the procedure well. FINDINGS: Left axillary abscess, maximally aspirated. IMPRESSION: Left axillary abscess, maximally aspirated. PLAN: The patient was stable after the procedure and was transferred to the interventional recovery area. The patient will be transferred to the floor.
[2018-03-19 21:52] VITALS: BP 135/72
[2018-03-20 06:20] VITALS: BP 142/78
[2018-03-20 09:27] LABS: ABSOLUTE BASOPHIL COUNT 0 /CUMM (0.0-0.2); ABSOLUTE EOSINOPHIL COUNT 0.3 /CUMM (0.0-0.7); ABSOLUTE GRANULOCYTE CT 8.4 /CUMM (1.4-6.5); ABSOLUTE LYMPH COUNT 1.1 /CUMM (1.2-3.4); ABSOLUTE MONOCYTE COUNT 0.6 /CUMM (0.10-0.60); BASOPHIL % 0.2 % (0.0-2.0); EOSINOPHIL % 2.5 % (0-5); GRANULOCYTE % 80.8 % (42.2-75.2); HEMATOCRIT 38.2 % (42-52); MEAN CORPUSCULAR HGB 29.5 PG (27.0-31.0); MEAN CORPUSCULAR HGB CONC 32.8 G/DL (33.0-37.0); MEAN PLATELET VOLUME 7.4 FL (7.4-10.4); PLATELET COUNT 388 /CUMM (130-400); RBC DISTRIBUTION WIDTH 13.7 % (11.5-14.5); RED BLOOD CELL CT 4.25 /CUMM (4.70-6.10); WHITE BLOOD CELL COUNT 10.4 /CUMM (4.8-10.8)
--- NOTE | 2018-03-20 10:16 | PN- General Surgery ---
Subjective Subjective: feels better after u/s guided aspiration. 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 Objective Vital Signs and I&Os Vital Signs Date Time Temp Pulse Resp B/P B/P Pulse O2 O2 Flow FiO2 Mean Ox Delivery Rate 03/20 0921 70 142/78 03/20 09 70 142/78 03/20 0620 98.2 71 18 142/78 96 Room Air 03/20 0000 Room Air 03/19 2152 98.1 73 18 135/72 97 03/19 2113 78 120/68 03/19 1354 98.8 78 20 124/80 96 Room Air Intake & Output 03/20 1600 03/20 0800 03/20 0000 03/19 1600 03/19 0800 03/19 0000 Intake Total 1250 400 100 500 Output Total 1 Balance 1249 400 100 500 Intake, IV 450 400 100 100 Intake, Oral 800 0 400 Number 1 Bowel Movements Output, Stool 1 Patient 286 lb Weight Physical Exam: gen; obese, nad, frustrated. axilla; tender induration, erythema localized. Current Medications: Current Medications Sig/Bailee Start time Last Medication Dose Route Stop Time Status Admin Acetaminophen 1,000 MG .STK-MED ONE 03/19 2347 DC IV 03/19 2348 Acetaminophen 1,000 MG .STK-MED ONE 03/19 1637 DC IV 03/19 1638 Acetaminophen 650 MG Q6P PRN 03/15 0230 AC 03/20 PO 0520 Acetaminophen 1,000 MG Q6P PRN 03/15 0230 AC 03/19 IV 2349 Amlodipine Besylate 5 MG DAILY 03/15 900 AC 03/20 PO 0921 Ampicillin Sodium/ 3,000 MG Q6 03/16 06 DC 03/19 Sulbactam Sodium IV 1331 Sodium Chloride 100 ML Aspirin Buffered 81 MG DAILY 03/15 09 AC 03/20 PO 0921 Atorvastatin Calcium 80 MG DAILY 03/15 900 AC 03/20 PO 0921 Enoxaparin Sodium 40 MG DAILY@1500 03/14 1515 SC Insulin Aspart 0 AT BEDTIME 03/19 2100 AC 03/19 SC 2113 Insulin Aspart 0 TIDAC 03/19 1700 AC 03/20 SC 0921 Insulin Aspart 0 TIDAC 03/17 1200 DC 03/19 SC 0956 Insulin Human Regular 0 Q6 03/19 0100 DC 03/19 SC 1331 Lidocaine 1 ML .STK-MED ONE 03/19 1542 DC ID 03/19 1543 Metoprolol Tartrate 50 MG BID 03/14 2100 AC 03/20 PO 0921 Sodium Chloride 1,000 ML Q20H 03/19 0930 DC 03/19 IV 0957 Tramadol HCl 50 MG Q6 PRN 03/18 0815 AC 03/18 PO 2049 Vancomycin HCl 1,500 MG Q12H 03/19 1800 AC 03/20 Sodium Chloride 250 ML IV 0512 Results Last 48 Hours of Labs: Laboratory Tests 03/20 03/19 0740 0630 Hematology CBC w Diff NO MAN DIFF REQ NO MAN DIFF REQ WBC (4.8 - 10.8 /CUMM) 10.4 11.8 H RBC (4.70 - 6.10 /CUMM) 4.25 L 4.07 L Hgb (14.0 - 18.0 G/DL) 12.5 L 12.2 L Hct (42 - 52 %) 38.2 L 36.8 L MCV (80.0 - 94.0 FL) 90.0 90.3 MCH (27.0 - 31.0 PG) 29.5 30.0 MCHC (33.0 - 37.0 G/DL) 32.8 L 33.2 RDW (11.5 - 14.5 %) 13.7 13.9 Plt Count (130 - 400 /CUMM) 388 388 MPV (7.4 - 10.4 FL) 7.4 7.6 Gran % (42.2 - 75.2 %) 80.8 H 82.4 H Lymphocytes % (20.5 - 51.1 %) 10.3 L 8.7 L Monocytes % (1.7 - 9.3 %) 6.2 6.8 Eosinophils % (0 - 5 %) 2.5 1.7 Basophils % (0.0 - 2.0 %) 0.2 0.4 Absolute Granulocytes (1.4 - 6.5 /CUMM) 8.4 H 9.7 H Absolute Lymphocytes (1.2 - 3.4 /CUMM) 1.1 L 1.0 L Absolute Monocytes (0.10 - 0.60 /CUMM) 0.6 0.8 H Absolute Eosinophils (0.0 - 0.7 /CUMM) 0.3 0.2 Absolute Basophils (0.0 - 0.2 /CUMM) 0 0 Assessment/Plan Assessment/Plan Stable after aspiration by IR. Bear in mind procedure yesterday was purely diagnostic and will not resolve the issue. He will need surgical incision and drainage. I can perform as early as tomorrow. Let me know plans.
--- NOTE | 2018-03-20 14:40 | PN- Housestaff ---
Dasia Mendez 03/20/18 1440: Subjective Follow-up For: Left lateral chest wall axilla area cellulitis and abscess Subjective: Patient is seen and examined. He feels better today. Pain is controlled. Later in the evening, patient reported of swelling in the left lower back. His back did have blanching rash on examination however unsure what is causing the swelling in the left lower back. Patient does not report of pain in that area. Review of Systems Constitutional: Reports: see HPI. Objective Last 24 Hrs of Vital Signs/I&O Vital Signs Date Time Temp Pulse Resp B/P B/P Pulse O2 O2 Flow FiO2 Mean Ox Delivery Rate 03/20 1505 98.6 73 20 120/70 96 03/20 0921 70 142/78 03/20 0921 70 142/78 03/20 0620 98.2 71 18 142/78 96 Room Air 03/20 0000 Room Air 03/19 2152 98.1 73 18 135/72 97 /01 2113 78 120/68 Intake & Output 03/20 1600 03/20 0800 03/20 0000 Intake Total 1400 1250 Output Total 1 Balance 1400 1249 Intake, IV 450 Intake, Oral 1400 800 Number 1 Bowel Movements Output, Stool 1 Physical Exam General Appearance: Alert, Oriented X3 Skin: No Rashes, No Breakdown HEENT: Atraumatic Neck: Supple Cardiovascular: Regular Rate, Normal S1, Normal S2, rash over right lateral chest Lungs: Normal Air Movement Abdomen: Normal Bowel Sounds, Soft, No Tenderness Extremities: No Edema Assessment/Plan Assessment: Mr Au a pleasant 62-year-old gentleman with past medical history of diabetes, coronary artery disease, hypertension, hyperlipidemia, quadruple bypass and sleep apnea (untreated) who presented to the emergency department on 03/14/2018 complaining of worsening pain and erythema in the left chest and left axillary area. Patient continues to be on vancomycin for his cellulitis of left chest extending to axillary region. Previous cultures have grown MSSA. Surgical consult service on board. Patient is planned for I & D by surgery tomorrow. Continue patient on insulin regimen and follow fingersticks. Tramadol for pain 50 mg every 6 when necessary. Vision is also on IV and by mouth Tylenol We'll continue aspirin, statin, amlodipine, metoprolol VT prophylaxis Lovenox Patient is full code Problem List: 1. Cellulitis Pain Ratin Pain Location: chest Pain Goal: Pain 4 or less Pain Plan: tylenol prn for pain Tomorrow's Labs & Rationales: cbc bep Ann Wood 03/20/18 1551: Attending MD Review Statement Attending Statement Attending MD Statement: examined this patient, discuss w/resident/PA/INTEGRITY MANAGER, agreed w/resident/PA/INTEGRITY MANAGER, reviewed EMR data (avail), discussed with nursing Attending Assessment/Plan: Lt lateral chest wall and axillary area cellulitis and abscess- s/p IR guided drainage yesterday with gm stain showing Gm Positive cocci. Pt planned for I & D by surgery tomorrow. Cont on iv vancomycin for now. Pt was initially on iv unasyn. Pt on examination of the chest wall on lef side shows redness and warmth and also a collection and some skin induration. d/w pt the care plan. Pts wbc is better at 10k down from 14k.
[2018-03-20 15:05] VITALS: BP 120/70
[2018-03-20 22:39] VITALS: BP 142/78
[2018-03-21 06:20] VITALS: BP 147/74
--- NOTE | 2018-03-21 08:00 | PN- Infect Dx ---
Subjective Subjective: Afebrile. He still notes some discomfort in the left chest but does feel improved. Objective Last 24 Hrs of Vital Signs/I&O Vital Signs Date Time Temp Pulse Resp B/P B/P Pulse O2 O2 Flow FiO2 Mean Ox Delivery Rate 03/21 0620 97.8 66 18 147/74 99 Room Air 03/20 2239 97.9 67 20 142/78 98 Room Air 03/20 2137 67 142/78 03/20 1505 98.6 73 20 120/70 96 03/20 0921 70 142/78 03/20 0921 70 142/78 Intake & Output 03/21 0800 03/21 0000 03/20 1600 Intake Total 600 1400 Output Total Balance 600 1400 Intake, Oral 600 1400 Physical Exam Other Physical Findings: He appears comfortable in no acute distress Chest induration over the left chest wall persists, though decreased in size, with decreased erythema, still mildly tender to palpation Results Last 24 Hours of Lab Results: Laboratory Tests 03/20 0740 Hematology CBC w Diff NO MAN DIFF REQ WBC (4.8 - 10.8 /CUMM) 10.4 RBC (4.70 - 6.10 /CUMM) 4.25 L Hgb (14.0 - 18.0 G/DL) 12.5 L Hct (42 - 52 %) 38.2 L MCV (80.0 - 94.0 FL) 90.0 MCH (27.0 - 31.0 PG) 29.5 MCHC (33.0 - 37.0 G/DL) 32.8 L RDW (11.5 - 14.5 %) 13.7 Plt Count (130 - 400 /CUMM) 388 MPV (7.4 - 10.4 FL) 7.4 Gran % (42.2 - 75.2 %) 80.8 H Lymphocytes % (20.5 - 51.1 %) 10.3 L Monocytes % (1.7 - 9.3 %) 6.2 Eosinophils % (0 - 5 %) 2.5 Basophils % (0.0 - 2.0 %) 0.2 Absolute Granulocytes (1.4 - 6.5 /CUMM) 8.4 H Absolute Lymphocytes (1.2 - 3.4 /CUMM) 1.1 L Absolute Monocytes (0.10 - 0.60 /CUMM) 0.6 Absolute Eosinophils (0.0 - 0.7 /CUMM) 0.3 Absolute Basophils (0.0 - 0.2 /CUMM) 0 Last 24 Hours of Nathaniel Results: Fluid from the left axillary site March 19 positive for Staph aureus sensitive to Oxacillin Assessment/Plan ID Impression: Improvement in his left chest wall inflammation, status post drainage of 78 cc of purulent fluid 2 days ago, with his temperatures remaining normal and his white blood cell count yesterday decreased. He was changed to Vancomycin, as recommended, pending his culture but, as it is positive for MSSA, his antibiotics can be narrowed. He is apparently scheduled for drainage in the OR later today. Suggestion: 1. Await definitive drainage in the OR later today 2. Discontinue Vancomycin 3. Begin Oxacillin 2 g IV every 4 hours
--- NOTE | 2018-03-21 08:37 | PN- Housestaff ---
Nieves Carvajal 03/21/18 0837: Subjective Follow-up For: Chest cellulitis Subjective: Patient reports persistent tenderness in L axillary area. Denies fever, chills, nausea, vomiting or diarrhea Review of Systems Constitutional: Reports: see HPI. Objective Last 24 Hrs of Vital Signs/I&O Vital Signs Date Time Temp Pulse Resp B/P B/P Pulse O2 O2 Flow FiO2 Mean Ox Delivery Rate 03/21 924 64 140/70 03/21 924 64 140/70 03/21 0620 97.8 66 18 147/74 99 Room Air 03/20 2239 97.9 67 20 142/78 98 Room Air 03/20 2137 67 142/78 03/20 1505 98.6 73 20 120/70 96 Intake & Output 03/21 1600 03/21 0800 03/21 0000 Intake Total 180 600 Output Total Balance 180 600 Intake, Oral 180 600 Number 0 Bowel Movements Physical Exam General Appearance: Alert, Oriented X3, Cooperative, No Acute Distress Skin: L axilla and post chest skin erythema and induration Cardiovascular: Regular Rate, Normal S1, Normal S2 Lungs: Clear to Auscultation, Normal Air Movement Abdomen: Normal Bowel Sounds, Soft, No Tenderness Current Medications: Current Medications Sig/Bailee Start time Last Medication Dose Route Stop Time Status Admin Acetaminophen 650 MG .STK-MED ONE 03/20 2330 DC PO 03/20 2331 Acetaminophen 650 MG .STK-MED ONE 03/20 1546 DC PO 03/20 1547 Acetaminophen 650 MG Q6P PRN 03/15 0230 AC 03/21 PO 0748 Acetaminophen 1,000 MG Q6P PRN 03/15 0230 AC 03/19 IV 2349 Amlodipine Besylate 5 MG DAILY 03/15 09 AC 03/21 PO 0924 Aspirin Buffered 81 MG DAILY 03/15 09 AC 03/20 PO 0921 Atorvastatin Calcium 80 MG DAILY 03/15 900 AC 03/21 PO 0924 Dextrose/Sodium 1,000 ML Q20H 03/21 0845 DC Chloride IV Enoxaparin Sodium 40 MG DAILY@1500 03/14 1515 AC SC Insulin Aspart 0 AT BEDTIME 03/21 2100 AC SC Insulin Aspart 0 TIDAC 03/21 1700 DC SC Insulin Aspart 0 TIDAC 03/21 1300 UNVr SC Insulin Aspart 0 AT BEDTIME 03/19 2100 DC 03/20 SC 2138 Insulin Aspart 0 TIDAC 03/19 1700 DC 03/20 SC 1722 Insulin Human Regular 0 Q6 03/21 0830 DC 03/21 SC 0924 Metoprolol Tartrate 50 MG BID 03/14 2100 AC 03/21 PO 0924 Oxacillin Sodium 2,000 MG Q4 03/21 1000 AC Dextrose/Water 100 ML IV Tramadol HCl 50 MG Q6 PRN 03/18 0815 AC 03/18 PO 2049 Vancomycin HCl 1,500 MG Q12H 03/19 1800 DC 03/21 Sodium Chloride 250 ML IV 0520 Assessment/Plan Assessment: Mr Au a pleasant 62-year-old gentleman with past medical history of diabetes, coronary artery disease, hypertension, hyperlipidemia, quadruple bypass and sleep apnea (untreated) who presented to the emergency department on 03/14/2018 complaining of worsening pain and erythema in the left chest and left axillary area. #Cellulitis previous culture report grown MSSA Plan: * IR aspiration on L indurated wound culture grew Staph aureus, await final results * OR today for I&D with Dr. Palomares * Start IV Oxacillin 2g * CT chest showed loculations without wall off abcesses * We discontinued IV oxacillin and vancomycin * Discontinue IV Unasyn and will transition him to PO upon discharge * MRSA nares surveillance negative * Continue home medications including: Lopressor, Norvasc, Aspirin and Lipitor * Accu-Cheks and Novolog SS * Appreciate ID recommendations * Appreciate Surg recommendations Diet: Diabetic DVT PPX: Lovenox Patient is a full code Problem List: 1. Cellulitis Pain Ratin Pain Location: L chest Pain Goal: Pain 4 or less Pain Plan: Tramadol Tomorrow's Labs & Rationales: CBC Al Woodadrian 03/21/18 1353: Attending MD Review Statement Attending Statement Attending MD Statement: examined this patient, discuss w/resident/PA/DRY KILN WORKER, agreed w/resident/PA/DRY KILN WORKER, discussed with family, reviewed EMR data (avail), discussed with nursing Attending Assessment/Plan: Lt lateral chest wall abscess- s/p I & D today by Dr Palomares. D/w Dr Palomares, from his standpoint pt can be dced tomorrow home and f/u with him in [place]. will f/u on cultures final results to determine abx . Prelim culutre staph aureus dw/ pt the care plan.
--- NOTE | 2018-03-21 10:54 | Operative Report ---
Operative/Inv Procedure Report Surgery Date: 03/21/18 Name of Procedure: Incision and drainage of left axillary abscess, deep Pre-Operative Diagnosis: Axillary abscess Post-Operative Diagnosis: Same Estimated Blood Loss: less than 50ml Surgeon/Telecommunication Equipment Repairer: Serg Palomares MD Anesthesia: laryngeal mask airway Drains: [place] Operative Indication: Patient with large axillary abscess presents for incision and drainage Operative/Procedure Note Note: After consent is brought to the abnormally supine. General anesthesia was obtained and is placed in partial left side up position on a beanbag. Area over the area of fluctuance just lateral to the skin abscess was able to local anesthesia. Transverse incision made sharply. Hemostasis with cautery. There was a large amount of purulence just below the skin infra-axillary crease. I then probed deeper and there was a large abscess cavity tracking laterally and posteriorly. It was deep to the investing fascia. Approximately 200 mL of purulence was evacuated. There is a third track going inferiorly which was bluntly opened and evacuated. Wound was irrigated with saline. Hemostasis achieved with direct pressure. Jerry drain was placed and sutured to the skin with 3-0 nylon. Sterile dressings were applied sponge and needle counts are correct. CC: Ziyad COLLAZO,Al Dodd
[2018-03-21 15:03] VITALS: BP 118/70
[2018-03-21 22:10] VITALS: BP 140/74
[2018-03-22 06:20] VITALS: BP 151/87
--- NOTE | 2018-03-22 07:05 | PN- Housestaff ---
Subjective Follow-up For: L axilla/chest cellulitis Subjective: Patient offers no complaints. Patient psot I&D and reports improvement in pain. No acute events overnight Review of Systems Constitutional: Reports: see HPI. Objective Last 24 Hrs of Vital Signs/I&O Vital Signs Date Time Temp Pulse Resp B/P B/P Pulse O2 O2 Flow FiO2 Mean Ox Delivery Rate 03/22 0848 98.3 66 18 151/87 / 0848 98.3 66 18 151/87 / 0620 98.3 66 18 151/87 98 Room Air / 2210 97.5 68 20 140/74 100 Room Air 03/21 2050 68 140/74 Intake & Output 03/22 1600 03/22 0800 03/22 0000 Intake Total 240 700 Output Total Balance 240 700 Intake, IV 100 Intake, Oral 240 600 Physical Exam General Appearance: Alert, Oriented X3, Cooperative, No Acute Distress Skin: L axilla with minimal serosanguinous drainage, resolving skin erythema and swelling. Nontender to touch Cardiovascular: Regular Rate, Normal S1, Normal S2 Lungs: Clear to Auscultation, Normal Air Movement Abdomen: Normal Bowel Sounds, Soft, No Tenderness Current Medications: Current Medications Sig/Bailee Start time Last Medication Dose Route Stop Time Status Admin Acetaminophen 650 MG .STK-MED ONE 03/21 2300 DC PO 03/21 2301 Acetaminophen 650 MG Q6P PRN 03/15 0230 DCD 03/21 PO 2302 Acetaminophen 1,000 MG Q6P PRN 03/15 0230 DCD 03/19 IV 2349 Amlodipine Besylate 5 MG DAILY 03/15 900 DCD 03/22 PO 0848 Aspirin Buffered 81 MG DAILY 03/15 09 DCD 03/22 PO 0848 Atorvastatin Calcium 80 MG DAILY 03/15 09 DCD 03/22 PO 0848 Cephalexin 500 MG Q6 03/22 1316 DCD 03/22 PO 03/29 0601 1422 Enoxaparin Sodium 40 MG DAILY@1500 03/14 1515 DCD SC Insulin Aspart 0 AT BEDTIME 03/21 2100 DCD 03/21 SC 2052 Insulin Aspart 0 TIDAC 03/21 1300 DCD 03/22 SC 1244 Metoprolol Tartrate 50 MG BID 03/14 2100 DCD 03/22 PO 0848 Oxacillin Sodium 2,000 MG Q4H 03/21 1700 DC Dextrose/Water 100 ML IV Oxacillin Sodium 2,000 MG Q4H 03/21 1700 DC 03/22 Sodium Chloride 100 ML IV 1246 Tramadol HCl 50 MG Q6 PRN 03/18 0815 DCD 03/18 PO 2048 Last 24 Hrs of Lab/Nathaniel Results Last 24 Hrs of Labs/Mics: Laboratory Tests 03/22/18 0620: Anion Gap 9, Estimated GFR > 60, BUN/Creatinine Ratio 13.8, CBC w Diff NO MAN DIFF REQ, RBC 4.11 L, MCV 89.6, MCH 30.1, MCHC 33.6, RDW 13.7, MPV 7.7, Gran % 69.6, Lymphocytes % 19.2 L, Monocytes % 6.2, Eosinophils % 4.4, Basophils % 0.6 , Absolute Granulocytes 4.7, Absolute Lymphocytes 1.3, Absolute Monocytes 0.4, Absolute Eosinophils 0.3, Absolute Basophils 0 Assessment/Plan Assessment: Mr Au a pleasant 62-year-old gentleman with past medical history of diabetes, coronary artery disease, hypertension, hyperlipidemia, quadruple bypass and sleep apnea (untreated) who presented to the emergency department on 03/14/2018 complaining of worsening pain and erythema in the left chest and left axillary area. #Cellulitis previous culture report grown MSSA s/p I&D Plan: * IR aspiration on L indurated wound culture grew Staph aureus susceptible to cephalosorins * Will start Keflex for 1 week upon discharge * CT chest showed loculations without wall off abcesses * We discontinued IV oxacillin and vancomycin * MRSA nares surveillance negative * Continue home medications including: Lopressor, Norvasc, Aspirin and Lipitor * Accu-Cheks and Novolog SS * Appreciate ID recommendations * Appreciate Surg recommendations Diet: Diabetic DVT PPX: Lovenox Patient is a full code Problem List: 1. Cellulitis Pain Ratin Pain Location: NA Pain Goal: Remain pain free Pain Plan: NA Tomorrow's Labs & Rationales: none
[2018-03-22 08:39] LABS: ABSOLUTE BASOPHIL COUNT 0 /CUMM (0.0-0.2); ABSOLUTE EOSINOPHIL COUNT 0.3 /CUMM (0.0-0.7); ABSOLUTE GRANULOCYTE CT 4.7 /CUMM (1.4-6.5); ABSOLUTE LYMPH COUNT 1.3 /CUMM (1.2-3.4); ABSOLUTE MONOCYTE COUNT 0.4 /CUMM (0.10-0.60); BASOPHIL % 0.6 % (0.0-2.0); EOSINOPHIL % 4.4 % (0-5); GRANULOCYTE % 69.6 % (42.2-75.2); HEMATOCRIT 36.8 % (42-52); MEAN CORPUSCULAR HGB 30.1 PG (27.0-31.0); MEAN CORPUSCULAR HGB CONC 33.6 G/DL (33.0-37.0); MEAN CORPUSCULAR VOLUME 89.6 FL (80.0-94.0); MEAN PLATELET VOLUME 7.7 FL (7.4-10.4); PLATELET COUNT 415 /CUMM (130-400); RBC DISTRIBUTION WIDTH 13.7 % (11.5-14.5); RED BLOOD CELL CT 4.11 /CUMM (4.70-6.10); WHITE BLOOD CELL COUNT 6.7 /CUMM (4.8-10.8)
[2018-03-22 08:48] VITALS: BP 151/87
--- NOTE | 2018-03-22 08:53 | PN- General Surgery ---
See Addendum Subjective Subjective: pod#1 s/p left axilla abscess i&d no major isuues overnight "I feel so much better after surgery" denies cp, sob Objective Vital Signs and I&Os Vital Signs Date Time Temp Pulse Resp B/P B/P Pulse O2 O2 Flow FiO2 Mean Ox Delivery Rate /619 98.3 66 18 151/87 98 Room Air 03/21 2210 97.5 68 20 140/74 100 Room Air 03/21 2050 68 140/74 03/21 1503 98.6 71 20 118/70 97 03/21 0924 64 140/70 03/21 0924 64 140/70 Intake & Output 03/22 1600 03/22 0800 03/22 0000 03/21 1600 03/21 0800 03/21 0000 Intake Total 240 700 580 600 Output Total Balance 240 700 580 600 Intake, IV 100 Intake, Oral 240 600 580 600 Number 0 Bowel Movements Physical Exam: cv: rrr lungs clear abd: soft, +b ext: soak abd drsg changed at bedside this am(expected w/ krystal drain in place ) cellulitis decreased non tender indurated area posterior to incision Assessment/Plan Assessment/Plan surgical improved after i&d aspirate from 6 sensitive to current abx ordered plan cont per medicine daily dry sterile drsg chnaged to left axilla(re enforce/changed prn per nursing ) will d/w attending
--- NOTE | 2018-03-22 11:05 | PN- Att Addend ---
Attending Addendum Attending Brief Note Patient seen and examined, overall doing better. Patient is status post incision and drainage of the left lateral chest wall cellulitis. He initially underwent interventional radiology guided aspiration on March 19 and then later on March 21 he was taken to or by surgery for incision and drainage. The cellulitis area definitely has less induration and erythema has improved significantly. Cultures growing staph aureus which is MSSA. Leukocytosis has improved. Patient currently getting treated with oxacillin. Please discuss with infectious disease about switching the antibiotics to oral. From surgery standpoint patient can be discharged home. If okay with ID then we can switch him to oral antibiotics and discharge him home. Noted increased blood sugars. Patient should resume his home oral hypoglycemic regimen upon discharge. Patient on Lovenox for DVT prophylaxis.
--- NOTE | 2018-03-22 11:48 | PN- Infect Dx ---
Subjective Subjective: Afebrile. He feels improved today with no pain. Objective Last 24 Hrs of Vital Signs/I&O Vital Signs Date Time Temp Pulse Resp B/P B/P Pulse O2 O2 Flow FiO2 Mean Ox Delivery Rate 03/22 0848 98.3 66 18 151/87 / 0848 98.3 66 18 151/87 / 0620 98.3 66 18 151/87 98 Room Air 03/21 2210 97.5 68 20 140/74 100 Room Air 03/21 2050 68 140/74 03/21 1503 98.6 71 20 118/70 97 Intake & Output 03/22 1600 03/22 0800 03/22 0000 Intake Total 240 700 Output Total Balance 240 700 Intake, IV 100 Intake, Oral 240 600 Physical Exam Other Physical Findings: He appears comfortable in no acute distress Chest marked decreased in the inflammation of the left chest wall, with no further induration, minimal erythema and no tenderness on palpation; a krystal drain remains in place Results Last 24 Hours of Lab Results: Laboratory Tests 03/22 620 Chemistry Sodium (137 - 145 mmol/L) 139 Potassium (3.5 - 5.1 mmol/L) 4.3 Chloride (98 - 107 mmol/L) 104 Carbon Dioxide (22 - 30 mmol/L) 27 Anion Gap (5 - 16) 9 BUN (9 - 20 mg/dL) 11 Creatinine (0.7 - 1.2 mg/dL) 0.8 Estimated GFR (>60 ml/min) > 60 BUN/Creatinine Ratio (7 - 25 %) 13.8 Hematology CBC w Diff NO MAN DIFF REQ WBC (4.8 - 10.8 /CUMM) 6.7 RBC (4.70 - 6.10 /CUMM) 4.11 L Hgb (14.0 - 18.0 G/DL) 12.4 L Hct (42 - 52 %) 36.8 L MCV (80.0 - 94.0 FL) 89.6 MCH (27.0 - 31.0 PG) 30.1 MCHC (33.0 - 37.0 G/DL) 33.6 RDW (11.5 - 14.5 %) 13.7 Plt Count (130 - 400 /CUMM) 415 H MPV (7.4 - 10.4 FL) 7.7 Gran % (42.2 - 75.2 %) 69.6 Lymphocytes % (20.5 - 51.1 %) 19.2 L Monocytes % (1.7 - 9.3 %) 6.2 Eosinophils % (0 - 5 %) 4.4 Basophils % (0.0 - 2.0 %) 0.6 Absolute Granulocytes (1.4 - 6.5 /CUMM) 4.7 Absolute Lymphocytes (1.2 - 3.4 /CUMM) 1.3 Absolute Monocytes (0.10 - 0.60 /CUMM) 0.4 Absolute Eosinophils (0.0 - 0.7 /CUMM) 0.3 Absolute Basophils (0.0 - 0.2 /CUMM) 0 Last 24 Hours of Nathaniel Results: No new cultures Assessment/Plan ID Impression: Marked improvement, with near resolution of his left chest wall inflammation, status post I&D of a deep left axillary abscess yesterday, with removal of approximately 200 cc of purulent fluid, following a previous drainage by IR of 78 cc of purulent fluid 2 days earlier. He remains afebrile with his white blood cell count now normal on Oxacillin for MSSA isolated from the culture obtained from his initial drainage. Suggestion: 1. Discontinue Oxacillin and begin Keflex 500 mg p.o. every 6 hours for 1 week.
[2018-03-22] MEDS ORDERED: CEPHALEXIN500 M3 PO (13:21)
== END 2018-03-22 14:30 | DRG 580 ==
LOC: ERH 11:10 → ERHI 12:45 → 2NA 12:45 → ENTRNSPT 14:34 → EDTRNSPTSTS 14:56 → EDTRNSPT 14:56 → 2NA 15:33 → CMPTRNSPT 16:55 → 2NA 03-16 08:26 → CMPBEDREQ 03-16 12:50 → ENTRNSPT 03-21 11:37 → EDTRNSPTSTS 03-21 11:47 → EDTRNSPT 03-21 11:47 → CMPTRNSPT 03-21 12:06 → ENPENDDIS 03-22 13:32 → 2NA 03-22 14:30 → ENTRNSPT 03-22 15:13 → CMPTRNSPT 03-22 15:29
PROVIDERS: Emergency Medicine; Internal Medicine Adolescent Medicine; Student in an Organized Health Care Education/Training Program
PROC: 0J9F0ZZ Drainage of Left Upper Arm Subcutaneous Tissue and Fascia, Open Approach (ICD-10-PCS; principal; 2018-03-21)
DX: L02.412 Cutaneous abscess of left axilla (principal); L03.313 Cellulitis of chest wall; E11.9 Type 2 diabetes mellitus without complications; L02.233 Carbuncle of chest wall; B95.61 Methicillin susceptible Staphylococcus aureus infection as the cause of diseases classified elsewhere; I25.10 Atherosclerotic heart disease of native coronary artery without angina pectoris; R00.0 Tachycardia, unspecified; Z95.1 Presence of aortocoronary bypass graft; I10 Essential (primary) hypertension; E78.5 Hyperlipidemia, unspecified; G47.33 Obstructive sleep apnea (adult) (pediatric); Z88.6 Allergy status to analgesic agent; Z88.5 Allergy status to narcotic agent; Z79.84 Long term (current) use of oral hypoglycemic drugs; Z79.82 Long term (current) use of aspirin; R74.0 Nonspecific elevation of levels of transaminase and lactic acid dehydrogenase [LDH]; E66.9 Obesity, unspecified; Z68.39 Body mass index [BMI] 39.0-39.9, adult
CPT/HCPCS: 2NAP; 86618; 87075; 87184; 36415; 36592; 82436; 87040; 87147; 93005; 93010; 96374; J0131; J1650; J1815; J2001; J3370; J3490; J7040; J7042